=== PATIENT | male | born 1940 | race Caucasian/White ===

== ENCOUNTER 2018-05-10 11:44 | Inpatient (IN) | payer MEDICARE, OTHER ==
[2018-05-10] MEDS ORDERED: ALBUTEROL NEBULIZED 2.5 MG/3 ML INHALATION STA (11:48)
[2018-05-10] MEDS ORDERED: methylPREDNISolone SOD SUCCI 125 MG/2 ML VIAL IV STA (11:48)
[2018-05-10] MEDS ORDERED: IPRATROPIUM 0.5 MG/2.5 ML NEBU INHALATION STA (11:48)
[2018-05-10] MEDS ORDERED: SODIUM CHLORIDE 0.9% 1,000 ML IV STA (11:48)
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
[2018-05-10 12:57] LABS: Basophils # (A) 0.1 k/uL (0-0.2); Basophils % (A) 1 %; Eosinophils # (A) 0.2 k/uL (0-0.7); Eosinophils % (A) 2 %; HCT 53.2 % (39.0-53.0); HGB 15.9 gm/dL (13.0-17.5); Hypochromasia Slight; Lymphocytes % (A) 39 %; MCH 26.3 pg (25.0-35.0); MCHC 29.9 g/dL (31.0-37.0); MCV 88.1 fL (80.0-100.0); Mean Platelet Volume 6.9; Monocytes # (A) 0.8 k/uL (0-1.0); Monocytes % (A) 6 %; Neutrophils # (A) 6.6 k/uL (1.3-7.7); Neutrophils % (A) 49 %; Platelet Count 336 k/uL (150-450); RBC 6.05 m/uL (4.30-5.90); RDW 14.4 % (11.5-15.5); WBC 13.4 k/uL (3.8-10.6)
[2018-05-10 13:00] LABS: Lymphocytes # (A) 5.3 k/uL (1.0-4.8)
[2018-05-10 13:07] LABS: Albumin 3.9 g/dL (3.5-5.0); Calcium 8.9 mg/dL (8.4-10.2); Magnesium 2.2 mg/dL (1.6-2.3); Total Bilirubin 0.7 mg/dL (0.2-1.3); Total Protein 7.6 g/dL (6.3-8.2)
[2018-05-10 13:19] LABS: Potassium 4.8 mmol/L (3.5-5.1)
[2018-05-10 13:25] LABS: Creatine Kinase 31 U/L (55-170)
[2018-05-10 13:38] LABS: Creatine Kinase MB 0.4 ng/mL (0.0-2.4); Troponin I <0.012 ng/mL (0.000-0.034)
--- NOTE | 2018-05-10 14:30 | XR ---
EXAMINATION TYPE: XR chest 2V DATE OF EXAM: 05/10/2018 COMPARISON: 07/06/2015 HISTORY: Shortness of breath TECHNIQUE: Frontal and lateral views of the chest are obtained. FINDINGS: Scattered senescent parenchymal changes noted. Hyperinflation compatible with COPD. Patchy density right medial lung base. Consider atelectasis or developing infiltrate. Heart size is stable. Mediastinal structures are stable and grossly unremarkable. No evidence for hilar prominence. Degenerative changes dorsal spine. IMPRESSION: 1. Patchy density right medial lung base. Consider atelectasis or developing infiltrate.
[2018-05-10] MEDS ORDERED: LEVOFLOXACIN 750MG-D5W PMX 750 MG in DEXTROSE/WATER 1 150ML.BAG IVPB STA (14:53)
[2018-05-10] MEDS ORDERED: PIPERACILLIN-TAZOBACTAM 3.375 GM in SODIUM CHLORIDE 0.9% 100 ML IVPB STA (14:53)
[2018-05-10] MEDS: SODIUM CHLORIDE 0.9% 1,000 ML IV SCH (15:56)
[2018-05-10] MEDS: IPRATROPIUM-ALBUTEROL 3 ML NEB INHALATION SCH ×2 (16:00→19:35)
[2018-05-10] MEDS ORDERED: LORazepam 2 MG/ML INJ IV STA (16:04)
[2018-05-10] MEDS: methylPREDNISolone SOD SUCCI 125 MG/2 ML VIAL IV SCH (19:11)
[2018-05-10] MEDS ORDERED: AMMONIUM LACTATE 12% CREAM 140 GM TUBE TOPICAL PRN (22:58)
[2018-05-10] MEDS ORDERED: ALBUTEROL NEBULIZED 2.5 MG/3 ML INHALATION PRN (22:58)
[2018-05-11] MEDS ORDERED: Acetaminophen-Codeine 300-30mg TAB PO STA (00:11)
[2018-05-11] MEDS ORDERED: ACETAMINOPHEN TAB 500 MG TAB PO PRN (00:12)
[2018-05-11] MEDS: PIPERACILLIN-TAZOBACTAM 3.375 GM in SODIUM CHLORIDE 0.9% 100 ML IVPB SCH ×3 (00:24→17:02)
[2018-05-11] MEDS: methylPREDNISolone SOD SUCCI 125 MG/2 ML VIAL IV SCH ×4 (00:24→17:55)
[2018-05-11] MEDS: SODIUM CHLORIDE 0.9% 1,000 ML IV SCH ×3 (00:29→22:09)
[2018-05-11] MEDS: IPRATROPIUM-ALBUTEROL 3 ML NEB INHALATION SCH ×4 (07:11→20:39)
[2018-05-11] MEDS: BUDESONIDE 0.5 MG/2 ML NEBU INHALATION SCH ×2 (07:11→20:39)
[2018-05-11] MEDS: ENOXAPARIN 40 MG/0.4 ML SYRINGE SQ SCH ×2 (08:06→08:12)
[2018-05-11] MEDS: DOCUSATE 100 MG CAP PO SCH ×2 (08:06→12:00)
[2018-05-11] MEDS: ASPIRIN 325 MG TAB PO SCH (08:06)
[2018-05-11] MEDS ORDERED: LEVOFLOXACIN 750MG-D5W PMX 750 MG in DEXTROSE/WATER 1 150ML.BAG IVPB SCH (16:00)
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
[2018-05-12] MEDS: PIPERACILLIN-TAZOBACTAM 3.375 GM in SODIUM CHLORIDE 0.9% 100 ML IVPB SCH ×3 (01:33→17:05)
[2018-05-12] MEDS: methylPREDNISolone SOD SUCCI 125 MG/2 ML VIAL IV SCH ×3 (01:33→11:25)
[2018-05-12] MEDS: LORazepam 2 MG/ML INJ IV PRN ×3 (05:17→21:50)
[2018-05-12] MEDS: BUDESONIDE 0.5 MG/2 ML NEBU INHALATION SCH ×2 (08:11→20:06)
[2018-05-12] MEDS: IPRATROPIUM-ALBUTEROL 3 ML NEB INHALATION SCH ×4 (08:11→20:06)
[2018-05-12] MEDS: SODIUM CHLORIDE 0.9% 1,000 ML IV SCH ×2 (08:16→17:32)
[2018-05-12] MEDS: LEVOFLOXACIN 750 MG TAB PO SCH (08:17)
[2018-05-12] MEDS: ASPIRIN 325 MG TAB PO SCH (08:17)
[2018-05-12] MEDS: DOCUSATE 100 MG CAP PO SCH ×2 (08:34→14:39)
[2018-05-12] MEDS: ENOXAPARIN 40 MG/0.4 ML SYRINGE SQ SCH (08:34)
--- NOTE | 2018-05-12 13:43 | P.PN ---
Subjective Progress Note Date: 05/12/18 77-year-old male one of Dr. Olvera's patient with past medical history of COPD, dementia, diabetes, hypertension hyperlipidemia who had history of bilateral DVT in the past had significant advanced dementia who presented to the emergency department at [facility] on 05/10/2018 complaining of worsening shortness of breath for the last 2 weeks become much worse the last few days with recurrent congestion and cough productive duct phlegm has been having hypoxia apparently 911 was called and EMS To the scene and transported patient to the emergency department where was seen and evaluated surprisingly chest x-ray showed right medial lung base infiltrate with worsening cough mild hypoxia and low pulse oximetry. Patient was started on IV antibiotics and admitted to the hospital shortly after with above problem. Patient is taking bronchodilator along with the distal night which will be continue both for now. 05/12: Patient is oriented to person only, he is incontinent of urine. He is able to eat 100% of his lunch. He has been afebrile, heart rate running in the 90s to low 100s. Pulse ox 94% on 3 L nasal cannula. No respiratory distress is noted. Solu-Medrol will be decreased to 40 mg every 8 hours. Blood culture is coag-negative staph which appears to be a contamination. Repeat blood culture will be checked. Patient is currently on Levaquin and Zosyn. Blood pressure is 140/96 and patient will be started on amlodipine. Review of Systems CONSTITUTIONAL: Well-developed no respiratory distress EYES: No icterus sclerae, no conjunctivitis. EARS, NOSE, MOUTH, THROAT, and FACE: No sore throat, lymphadenopathy, carotid bruits or deformity. RESPIRATORY: positive shortness of br and productive phlegm. CARDIOVASCULAR: positive PND orthopnea p GASTROINTESTINAL: No Abd pain, Nausea or vomiting, no Diarrhea or constipation, No GI Bleed, no distention or masses. GENITOURINARY: Negative for Hematuria or UTI, no kidney stones. INTEGUMENT/BREAST: Negative for any muscular injury with mild osteoarthritis.. HEMATOLOGIC/LYMPHATIC: Negative for bleed or purpura. MUSCULOSKELTAL: Negative for Myalgia or arthralgia. NEURLOGICAL: No LOC, Sz or syncope, blurred vision dizziness or abnormality.. BEHAVIORAL/PSYCH: Negative. ENDOCRINE: Negative. Objective - Vital Signs Vital signs: Vital Signs Temp 97.3 F L 01/30/19 06:01 Pulse 93 05/12/18 06:01 Resp 18 05/12/18 08:00 BP 185/92 05/12/18 06:01 Pulse Ox 94 L 05/12/18 06:01 Intake & Output 05/11/18 05/12/18 05/12/18 18:59 06:59 18:59 Intake Total 1200 Output Total 200 Balance 1200 -200 Intake: Oral 1200 Output: Urine 200 Other: Voiding Method Urinal Urinal Urinal Incontinent Incontinent # Voids 1 3 # Bowel Movements 1 - Exam General Appearance: Alert, cooperative, no respiratory distress. Neck HEENT: Supple, no lymphadenopathy, no thyroid enlargement, no carotid bruits. Lungs: decreased breaths in bilatemostly in the rigezes as well. Chest Wall:decreased expansion with deep inspiration no tenderness and no deformity was found on exam, no costochondral pain or discomfort. Heart: Regular rate and rhythm, S1, S2 normal, no murmur, rub or gallop. Back: Symmetric, no curvature, ROM normal, no CVA tenderness. Abdomen: Soft, non-tender, bowel sounds active all four quadrants, no masses, no organomegaly. Extremities: Extremities normal, atraumatic, no cyanosis or edema. Pulses: 2+ and symmetric. Skin: Skin color, texture, tugor normal, no rashes or lesions. Neurologic: Oriented to person only - Labs CBC & Chem 7: 05/10/18 12:15 05/10/18 12:15 Labs: Microbiology - Last 24 Hours (Table) 05/10/18 15:50 Blood Culture Gram Stain - Preliminary Blood Blood Culture - Preliminary Coagulase Negative Staph 05/10/18 15:50 Blood Culture - Final Blood Assessment and Plan Plan: 1 Acute respiratory distress secondary to aspiration pneumonia: Patient will be admitted to the hospital continue O2 continue Solu-Medrol will continue patient on albuterol ipratropium and Pulmicort for now consult pulmonary. 2 Right lower lobe pneumonia: Most likely aspiration pneumonia patient was started on Zosyn and Levaquin continued. 3 COPD with exacerbation at this point: Patient will be on updraft Solu-Medrol and Pulmicort. 4 Type 2 diabetes: Patient is not in any medication continue Accu-Chek with sliding scales for steroids. 5 History of DVT: Has not been on any anticoagulation long-term, patient will be on Lovenox while he is not hospital. He is up and about and ambulating. 6 Hypertension: Not on any medication if blood pressures elevated we will add amlodipine 5 mg daily. 7 Hyperlipidemia: Again he is not on any statin at this point. We will start atorvastatin 40 mg at bedtime. 8 Severe worsening dementia mostly Alzheimer disease patient is not in any medication or management for it yet. 9 GI prophylaxis: Patient will be on Pepcid 20 mg daily. 10 DVT prophylaxis: Patient will be on Lovenox. CODE STATUS: DO NOT RESUSCITATE. Discharge plan: Return to [facility] in the next 24-48 hours. Impression and plan of care have been directed as dictated by the signing physician. Maribel Stock nurse practitioner acting as scribe for signing physician.
[2018-05-12] MEDS: amLODIPine 5 MG TAB PO SCH (14:39)
[2018-05-12] MEDS: methylPREDNISolone SOD SUCCI 40 MG/ML 1 ML VIAL IV SCH (17:08)
[2018-05-12 17:14] LABS: Glucose,Whole Blood 198 mg/dL (75-99)
[2018-05-12] MEDS: INSULIN ASPART 100 UNIT/ML 1 ML 10 ML VIAL SQ SCH ×3 (17:31→21:45)
[2018-05-12 20:17] LABS: Glucose,Whole Blood 168 mg/dL (75-99)
[2018-05-12] MEDS: ATORVASTATIN 40 MG TAB PO SCH ×2 (21:38→21:45)
[2018-05-13] MEDS: methylPREDNISolone SOD SUCCI 40 MG/ML 1 ML VIAL IV SCH ×4 (00:05→23:03)
[2018-05-13] MEDS: PIPERACILLIN-TAZOBACTAM 3.375 GM in SODIUM CHLORIDE 0.9% 100 ML IVPB SCH ×4 (00:06→23:03)
[2018-05-13 04:16] LABS: Hemoglobin A1C 6.9 % (4.0-6.0)
[2018-05-13] MEDS: SODIUM CHLORIDE 0.9% 1,000 ML IV SCH ×2 (05:11→13:39)
[2018-05-13 07:09] LABS: Glucose,Whole Blood 162 mg/dL (75-99)
[2018-05-13] MEDS: BUDESONIDE 0.5 MG/2 ML NEBU INHALATION SCH ×2 (07:41→19:38)
[2018-05-13] MEDS: IPRATROPIUM-ALBUTEROL 3 ML NEB INHALATION SCH ×4 (07:41→19:38)
[2018-05-13] MEDS: FAMOTIDINE 20 MG TAB PO SCH (08:37)
[2018-05-13] MEDS: ENOXAPARIN 40 MG/0.4 ML SYRINGE SQ SCH (08:37)
[2018-05-13] MEDS: LEVOFLOXACIN 750 MG TAB PO SCH (08:37)
[2018-05-13] MEDS: amLODIPine 5 MG TAB PO SCH (08:37)
[2018-05-13] MEDS: ASPIRIN 325 MG TAB PO SCH (08:37)
[2018-05-13] MEDS: DOCUSATE 100 MG CAP PO SCH ×2 (08:37→13:47)
[2018-05-13] MEDS: INSULIN ASPART 100 UNIT/ML 1 ML 10 ML VIAL SQ SCH ×4 (08:38→20:28)
[2018-05-13 09:47] LABS: Basophils % (A) 0 %; Eosinophils # (A) 0.1 k/uL (0-0.7); Eosinophils % (A) 0 %; HCT 51.6 % (39.0-53.0); HGB 15.1 gm/dL (13.0-17.5); Hypochromasia Marked; Lymphocytes # (A) 1.8 k/uL (1.0-4.8); Lymphocytes % (A) 12 %; MCH 26.8 pg (25.0-35.0); MCHC 29.2 g/dL (31.0-37.0); MCV 91.6 fL (80.0-100.0); Mean Platelet Volume 7.4; Monocytes # (A) 0.8 k/uL (0-1.0); Monocytes % (A) 5 %; Neutrophils # (A) 12.6 k/uL (1.3-7.7); Neutrophils % (A) 82 %; Platelet Count 312 k/uL (150-450); RBC 5.63 m/uL (4.30-5.90); RDW 14.8 % (11.5-15.5); WBC 15.4 k/uL (3.8-10.6)
[2018-05-13 10:08] LABS: Albumin 3.4 g/dL (3.5-5.0); Calcium 8.7 mg/dL (8.4-10.2); Potassium 4.8 mmol/L (3.5-5.1); Total Bilirubin 0.4 mg/dL (0.2-1.3); Total Protein 6.5 g/dL (6.3-8.2)
[2018-05-13 11:08] LABS: Poikilocytosis (M) Present
[2018-05-13 11:50] LABS: Glucose,Whole Blood 172 mg/dL (75-99)
--- NOTE | 2018-05-13 12:58 | P.PN ---
Subjective Progress Note Date: 05/13/18 77-year-old male one of Dr. Olvera's patient with past medical history of COPD, dementia, diabetes, hypertension hyperlipidemia who had history of bilateral DVT in the past had significant advanced dementia who presented to the emergency department at [facility] on 05/10/2018 complaining of worsening shortness of breath for the last 2 weeks become much worse the last few days with recurrent congestion and cough productive duct phlegm has been having hypoxia apparently 911 was called and EMS To the scene and transported patient to the emergency department where was seen and evaluated surprisingly chest x-ray showed right medial lung base infiltrate with worsening cough mild hypoxia and low pulse oximetry. Patient was started on IV antibiotics and admitted to the hospital shortly after with above problem. Patient is taking bronchodilator along with the distal night which will be continue both for now. 05/12: Patient is oriented to person only, he is incontinent of urine. He is able to eat 100% of his lunch. He has been afebrile, heart rate running in the 90s to low 100s. Pulse ox 94% on 3 L nasal cannula. No respiratory distress is noted. Solu-Medrol will be decreased to 40 mg every 8 hours. Blood culture is coag-negative staph which appears to be a contamination. Repeat blood culture will be checked. Patient is currently on Levaquin and Zosyn. Blood pressure is 140/96 and patient will be started on amlodipine. 05/13: Patient awakens easily to verbal stimuli. He is awake and alert to person and can answer questions on himself appropriately. We will add in consult with Dr. VICKY Linares as he has seen him in the past. He'll be continued on Solu-Medrol 40 every 8 hours along with Zosyn, Levaquin, DuoNeb treatments and Pulmicort. Patient has been afebrile, blood pressure 157/69, pulse ox 94-96 % on 2 L nasal cannula. Heart rate ran between 80s and 90s. White count is 15.4, creatinine 1.23, With blood glucose running between 162 and 224. Patient is on NovoLog scale. IV fluids will be discontinued. Anticipate possible discharge to [facility] on Thursday or Thursday. Review of Systems CONSTITUTIONAL: Well-developed no respiratory distress EYES: No icterus sclerae, no conjunctivitis. EARS, NOSE, MOUTH, THROAT, and FACE: No sore throat, lymphadenopathy, carotid bruits or deformity. RESPIRATORY: positive shortness of br and productive phlegm. CARDIOVASCULAR: Denies PND orthopnea p GASTROINTESTINAL: No Abd pain, Nausea or vomiting, no Diarrhea or constipation, No GI Bleed, no distention or masses. GENITOURINARY: Negative for Hematuria or UTI, no kidney stones. INTEGUMENT/BREAST: Negative for any muscular injury with mild osteoarthritis.. HEMATOLOGIC/LYMPHATIC: Negative for bleed or purpura. MUSCULOSKELTAL: Negative for Myalgia or arthralgia. NEURLOGICAL: No LOC, Sz or syncope, blurred vision dizziness or abnormality. BEHAVIORAL/PSYCH: Negative. ENDOCRINE: Negative. Objective - Vital Signs Vital signs: Vital Signs Temp 97.0 F L 05/13/18 06:30 Pulse 88 05/13/18 11:19 Resp 18 05/13/18 06:30 BP 157/69 05/13/18 06:30 Pulse Ox 94 L 05/13/18 06:30 Intake & Output 05/12/18 05/13/18 05/13/18 18:59 06:59 18:59 Intake Total 1200 900 Balance 1200 900 Intake: Oral 1200 900 Other: Voiding Method Urinal Urinal Incontinent Incontinent # Voids 1 2 - Exam General Appearance: Alert, cooperative, no respiratory distress. Patient awakens easily to verbal stimuli. Neck HEENT: Supple, no lymphadenopathy, no thyroid enlargement, no carotid bruits. Lungs: decreased breaths in bilatemostly in the rigezes as well. Chest Wall:decreased expansion with deep inspiration no tenderness and no deformity was found on exam, no costochondral pain or discomfort. Heart: Regular rate and rhythm, S1, S2 normal, no murmur, rub or gallop. Back: Symmetric, no curvature, ROM normal, no CVA tenderness. Abdomen: Soft, non-tender, bowel sounds active all four quadrants, no masses, no organomegaly. Extremities: Extremities normal, atraumatic, no cyanosis or edema. Pulses: 2+ and symmetric. Skin: Skin color, texture, tugor normal, no rashes or lesions. Neurologic: Oriented to person only - Labs CBC & Chem 7: 05/13/18 09:18 05/13/18 09:18 Labs: Abnormal Lab Results - Last 24 Hours (Table) 05/12/18 05/12/18 05/12/18 Range/Units 12:15 17:10 20:15 WBC (3.8-10.6) k/uL MCHC (31.0-37.0) g/dL Neutrophils # (1.3-7.7) k/uL Chloride (98-107) mmol/L BUN (9-20) mg/dL Glucose (74-99) mg/dL POC Glucose (mg/dL) 198 H 168 H (75-99) mg/dL Hemoglobin A1c 6.9 H (4.0-6.0) % Albumin (3.5-5.0) g/dL 05/13/18 05/13/18 05/13/18 Range/Units 06:54 09:18 09:18 WBC 15.4 H (3.8-10.6) k/uL MCHC 29.2 L (31.0-37.0) g/dL Neutrophils # 12.6 H (1.3-7.7) k/uL Chloride 112 H (98-107) mmol/L BUN 28 H (9-20) mg/dL Glucose 224 H (74-99) mg/dL POC Glucose (mg/dL) 162 H (75-99) mg/dL Hemoglobin A1c (4.0-6.0) % Albumin 3.4 L (3.5-5.0) g/dL Assessment and Plan Plan: 1 Acute respiratory distress secondary to aspiration pneumonia: Patient will be admitted to the hospital continue O2 continue Solu-Medrol will continue patient on albuterol ipratropium and Pulmicort for now consult pulmonary. Consult added for Dr. VICKY Linares. 2 Right lower lobe pneumonia: Most likely aspiration pneumonia patient was started on Zosyn and Levaquin continued. 3 COPD with exacerbation at this point: Patient will be on updraft Solu-Medrol and Pulmicort. 4 Type 2 diabetes: Patient is not in any medication continue Accu-Chek with sliding scales for steroids. 5 History of DVT: Has not been on any anticoagulation long-term, patient will be on Lovenox while he is not hospital. He is up and about and ambulating. 6 Hypertension: Not on any medication if blood pressures elevated we will add amlodipine 5 mg daily. 7 Hyperlipidemia: Again he is not on any statin at this point. We will start atorvastatin 40 mg at bedtime. 8 Severe worsening dementia mostly Alzheimer disease patient is not in any medication or management for it yet. 9 GI prophylaxis: Patient will be on Pepcid 20 mg daily. 10 DVT prophylaxis: Patient will be on Lovenox. CODE STATUS: DO NOT RESUSCITATE. Discharge plan: Return to [facility] in the next 24-48 hours. Impression and plan of care have been directed as dictated by the signing physician. Maribel Stock nurse practitioner acting as scribe for signing physician.
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
[2018-05-13] MEDS: LORazepam 2 MG/ML INJ IV PRN ×2 (14:51→21:27)
--- NOTE | 2018-05-13 16:51 | CT ---
EXAMINATION TYPE: CT chest wo con DATE OF EXAM: 05/13/2018 COMPARISON: None HISTORY: Shortness of breath and cough. CT DLP: 686.5 mGycm. Automated Exposure Control for Dose Reduction was Utilized. TECHNIQUE: CT scan of the thorax is performed without IV contrast. FINDINGS: There is dense airspace consolidation in the right upper lobe involving all the segments. There is sl ight anterior deviation of the major fissure that suggests atelectasis also. There are calcified gran ulomata at the pulmonary hiram. There is aneurysm of the ascending aorta measures 4.9 cm. Heart is sli ghtly enlarged. There is no pericardial effusion. There is no pleural effusion. There is some scarrin g in minimal atelectasis at the left posterior lung base. There are surgical clips in the left upper quadrant. There is 2 cm exophytic cyst on the posterior left kidney. I see no mediastinal adenopathy. There is spurring in the thoracic spine. There is no compression fracture. IMPRESSION: Right upper lobe pneumonia and minimal atelectasis. Old granulomatous disease. Thoracic aortic aneurysm. Minimal scarring and subsegmental atelectasis at the left lung base.
[2018-05-13 17:25] LABS: Glucose,Whole Blood 269 mg/dL (75-99)
[2018-05-13] MEDS: ATORVASTATIN 40 MG TAB PO SCH (20:18)
[2018-05-13 21:07] LABS: Glucose,Whole Blood 271 mg/dL (75-99)
[2018-05-14 07:07] LABS: Glucose,Whole Blood 130 mg/dL (75-99)
[2018-05-14] MEDS: IPRATROPIUM-ALBUTEROL 3 ML NEB INHALATION SCH ×2 (07:21→10:49)
[2018-05-14] MEDS: BUDESONIDE 0.5 MG/2 ML NEBU INHALATION SCH (07:22)
[2018-05-14] MEDS: INSULIN ASPART 100 UNIT/ML 1 ML 10 ML VIAL SQ SCH ×2 (07:51→13:11)
[2018-05-14] MEDS: methylPREDNISolone SOD SUCCI 40 MG/ML 1 ML VIAL IV SCH (07:55)
[2018-05-14] MEDS: PIPERACILLIN-TAZOBACTAM 3.375 GM in SODIUM CHLORIDE 0.9% 100 ML IVPB SCH ×2 (07:55→15:38)
[2018-05-14] MEDS: ENOXAPARIN 40 MG/0.4 ML SYRINGE SQ SCH (10:39)
[2018-05-14] MEDS: amLODIPine 5 MG TAB PO SCH (10:41)
[2018-05-14] MEDS: FAMOTIDINE 20 MG TAB PO SCH (10:42)
[2018-05-14] MEDS: DOCUSATE 100 MG CAP PO SCH ×2 (10:42→14:17)
[2018-05-14] MEDS: ASPIRIN 325 MG TAB PO SCH (10:43)
[2018-05-14] MEDS: LEVOFLOXACIN 750 MG TAB PO SCH (10:44)
[2018-05-14 11:00] VITALS: PULSE 100
--- NOTE | 2018-05-14 11:44 | FL ---
EXAMINATION TYPE: FL barium swallow w video DATE OF EXAM: 05/14/2018 MODIFIED SWALLOW / DEGLUTITION STUDY CLINICAL HISTORY: History of COPD with recurrent pneumonia, rule out aspiration. TECHNIQUE: Deglutition study is performed utilizing thin liquid barium, honey and nectar thick liqui d barium, barium thick applesauce, and barium coated cracker. A total of 2 minutes 9 seconds of fluor oscopic time was utilized during procedure. Serial spot images are saved to PACS. COMPARISON: None. FINDINGS: Exam slightly suboptimal due to patient's body habitus. The oral and pharyngeal phases show satisfactory initiation and propagation with all modalities tested. Satisfactory mastication is seen with solid modalities tested. There is no evidence of penetration or aspiration with any modality t ested. Mild pharyngeal residue was appreciated. IMPRESSION: No penetration or aspiration observed. Please refer to speech therapist notes for furthe r details if necessary.
[2018-05-14 12:21] LABS: Glucose,Whole Blood 176 mg/dL (75-99)
--- NOTE | 2018-05-14 12:42 | PN ---
PROGRESS NOTE DATE OF SERVICE: 05/14/2018 He continues to have shortness of breath. He does not have any chest pain. PHYSICAL EXAMINATION: Respiratory rate is 24, pulse rate 93, temperature 97.6, blood pressure 145/70, O2 saturation is 90%. HEENT is unremarkable. Chest is expiratory wheeze. Cardiovascular system is S1, S2. Abdomen is soft. There is no pedal edema. IMPRESSION: 1. Aspiration type pneumonia. 2. Bronchospasm. Video fluoroscopic study did not show any evidence of penetration or aspiration. 3. At this point in time, would continue the patient on current medications including Zosyn, IV steroids and bronchodilators. Prognosis is fair. MMODL / IJN: [id number] /
--- NOTE | 2018-05-14 13:06 | P.DS ---
Providers Date of admission: 05/12/18 10:32 Expected date of discharge: 05/14/18 Attending physician: Juliana Olvera Consults: 05/13/18 10:43 Consult Physician Routine Consulting Provider: Arvind Linares Consult Reason/Comments: pneumonia Do you want consulting provider notified?: Yes Primary care physician: Juliana Olvera [facility] Course: 77-year-old male one of Dr. Olvera's patient with past medical history of COPD, dementia, diabetes, hypertension hyperlipidemia who had history of bilateral DVT in the past had significant advanced dementia who presented to the emergency department at [facility] on 05/10/2018 complaining of worsening shortness of breath for the last 2 weeks become much worse the last few days with recurrent congestion and cough productive duct phlegm has been having hypoxia apparently 911 was called and EMS To the scene and transported patient to the emergency department where was seen and evaluated surprisingly chest x-ray showed right medial lung base infiltrate with worsening cough mild hypoxia and low pulse oximetry. Patient was started on IV antibiotics and admitted to the hospital shortly after with above problem. Patient is taking bronchodilator along with the distal night which will be continue both for now. 05/12: Patient is oriented to person only, he is incontinent of urine. He is able to eat 100% of his lunch. He has been afebrile, heart rate running in the 90s to low 100s. Pulse ox 94% on 3 L nasal cannula. No respiratory distress is noted. Solu-Medrol will be decreased to 40 mg every 8 hours. Blood culture is coag-negative staph which appears to be a contamination. Repeat blood culture will be checked. Patient is currently on Levaquin and Zosyn. Blood pressure is 140/96 and patient will be started on amlodipine. 05/13: Patient awakens easily to verbal stimuli. He is awake and alert to person and can answer questions on himself appropriately. We will add in consult with Dr. VICKY Linares as he has seen him in the past. He'll be continued on Solu-Medrol 40 every 8 hours along with Zosyn, Levaquin, DuoNeb treatments and Pulmicort. Patient has been afebrile, blood pressure 157/69, pulse ox 94-96 % on 2 L nasal cannula. Heart rate ran between 80s and 90s. White count is 15.4, creatinine 1.23, With blood glucose running between 162 and 224. Patient is on NovoLog scale. IV fluids will be discontinued. Anticipate possible discharge to [facility] on Thursday or Thursday. 05/14: Patient's mental status is much improved today. Appears patient is back to his baseline. He underwent modified barium swallow which did not find any aspiration. Patient has been afebrile, heart rate running in the 90s to 100. Blood pressure 145/70. Pulse ox 92% on 2 L nasal cannula. CAT scan of the chest reveals right upper lobe pneumonia and minimal atelectasis. Old granulomatous disease. Thoracic aortic aneurysm measures 4.9 cm. Minimal scarring and subsegmental atelectasis at the left lung base. Patient has been seen by pulmonary medicine. She is breathing status is improved and we will plan for return to [facility] today in stable condition. Discharge diagnoses: 1 Acute respiratory distress secondary to aspiration pneumonia, right lower lobe pneumonia 2 metabolic encephalopathy secondary to pneumonia 3 COPD with exacerbation 4 Type 2 diabetes uncontrolled with hyperglycemia secondary to steroids 5 History of DVT 6 Hypertension 7 Hyperlipidemia 8 Severe worsening dementia mostly Alzheimer disease Discharge plan: Return to [facility] under the care of Dr. Olvera Impression and plan of care have been directed as dictated by the signing physician. Maribel Stock nurse practitioner acting as scribe for signing physician. Patient Condition at Discharge: Good Plan - Discharge Summary Discharge Rx Participant: No New Discharge Prescriptions: New amLODIPine [Norvasc] 5 mg PO DAILY tab Atorvastatin [Lipitor] 40 mg PO HS tab Insulin Aspart [NovoLOG (formulary)] 0 unit SQ ACHS vial Levofloxacin [Levaquin] 750 mg PO DAILY #5 tab predniSONE 0 mg PO DIRECTED #40 tab Continue Albuterol Nebulized [Ventolin Nebulized] 2.5 mg INHALATION RT-Q4H PRN PRN Reason: Shortness Of Breath Or Wheezing Aspirin 325 mg PO DAILY@0900 Inzo 1 applic TOPICAL Q12H Ammonium Lactate Cream [Lac-Hydrin 12% Cream] 1 applic TOPICAL BID PRN PRN Reason: Dry Skin Docusate [Colace] 100 mg PO BID@0900,1400 Budesonide [Pulmicort] 0.5 mg INHALATION RT-BID Discharge Medication List Albuterol Nebulized [Ventolin Nebulized] 2.5 mg INHALATION RT-Q4H PRN 04/15/14 [ History] Aspirin 325 mg PO DAILY@0900 07/06/15 [History] Inzo 1 applic TOPICAL Q12H 07/07/15 [History] Ammonium Lactate Cream [Lac-Hydrin 12% Cream] 1 applic TOPICAL BID PRN 05/10/18 [History] Budesonide [Pulmicort] 0.5 mg INHALATION RT-BID 05/10/18 [History] Docusate [Colace] 100 mg PO BID@0900,1400 05/10/18 [History] Atorvastatin [Lipitor] 40 mg PO HS tab 05/14/18 [Rx] Insulin Aspart [NovoLOG (formulary)] 0 unit SQ ACHS vial 05/14/18 [Rx] Levofloxacin [Levaquin] 750 mg PO DAILY #5 tab 05/14/18 [Rx] amLODIPine [Norvasc] 5 mg PO DAILY tab 05/14/18 [Rx] predniSONE 0 mg PO DIRECTED #40 tab 05/14/18 [Rx] Follow up Appointment(s)/Referral(s): Juliana Olvera MD [Primary Care Provider] - 1 Week (at [facility]) Peggy Perry DO [Doctor of Osteopathic Medicine] - 2 Weeks Patient Instructions/Handouts: Pneumonia (DC) Activity/Diet/Wound Care/Special Instructions: Cardiac, diabetic diet. Assist with meals. Activity as tolerated, fall precautions. Transfer to chair, change positions every 2 hours. Toiliting schedule. Avoid brief. Bottom red, apply zinc barrier cream as needed.
[2018-05-14 14:30] VITALS: BP 134/65; RESP 20; TEMP 98.4
== END 2018-05-14 16:54 | DRG 177 ==
LOC: EC 11:44 → 4MS4W 14:03 → EEVIPCON 14:03 → INTOOBSV 14:03 → 4MS4W 17:20 → OBSVTOIN 05-12 10:32
PROVIDERS: ADMIT Family Medicine; ATTEND Family Medicine
DX: J69.0 Pneumonitis due to inhalation of food and vomit (principal); G93.41 Metabolic encephalopathy; J96.01 Acute respiratory failure with hypoxia; J44.1 Chronic obstructive pulmonary disease with (acute) exacerbation; E11.65 Type 2 diabetes mellitus with hyperglycemia; E78.5 Hyperlipidemia, unspecified; F02.80 Dementia in other diseases classified elsewhere, unspecified severity, without behavioral disturbance, psychotic disturbance, mood disturbance, and anxiety; G30.9 Alzheimer's disease, unspecified; H54.7 Unspecified visual loss; I11.0 Hypertensive heart disease with heart failure; I25.10 Atherosclerotic heart disease of native coronary artery without angina pectoris; I50.9 Heart failure, unspecified; I71.2 Thoracic aortic aneurysm, without rupture; R32 Unspecified urinary incontinence; T38.0X5A Adverse effect of glucocorticoids and synthetic analogues, initial encounter; Z66 Do not resuscitate; Z79.82 Long term (current) use of aspirin; Z86.718 Personal history of other venous thrombosis and embolism; Z86.73 Personal history of transient ischemic attack (TIA), and cerebral infarction without residual deficits; Z87.891 Personal history of nicotine dependence; Z88.8 Allergy status to other drugs, medicaments and biological substances
CPT/HCPCS: 36415; 71046; 71250; 74230; 80053; 82550; 82553; 83036; 83735; 83880; 84484; 85025; 87040; 87077; 87186; 87502; 93005; 94640; 94760; 96365; 99285

== ENCOUNTER 2021-05-12 14:03 | Emergency (ER) | payer MEDICARE, OTHER ==
[2021-05-12 14:57] LABS: ALT 22 U/L (4-49); AST 48 U/L (17-59); African American GFR (CKD) >90 (>60 ml/min/1.73 sqM); Albumin 3.8 g/dL (3.5-5.0); Alkaline Phosphatase 64 U/L (38-126); Anion Gap 6 mmol/L; Blood Urea Nitrogen 30 mg/dL (9-20); Calcium 8.7 mg/dL (8.4-10.2); Carbon Dioxide 23 mmol/L (22-30); Chloride 108 mmol/L (98-107); Glucose 129 mg/dL (74-99); Magnesium 2.1 mg/dL (1.6-2.3); Non-African American GFR(CKD) 83 (>60 ml/min/1.73 sqM); Sodium 137 mmol/L (137-145); Total Bilirubin 1.4 mg/dL (0.2-1.3); Total Protein 7.8 g/dL (6.3-8.2)
[2021-05-12 14:58] LABS: Potassium 5.8 mmol/L (3.5-5.1)
[2021-05-12 14:59] LABS: Basophils # (A) 0.1 k/uL (0-0.2); Basophils % (A) 1 %; Eosinophils # (A) 0.2 k/uL (0-0.7); Eosinophils % (A) 2 %; HCT 52.3 % (39.0-53.0); HGB 16.4 gm/dL (13.0-17.5); Lymphocytes # (A) 3.9 k/uL (1.0-4.8); Lymphocytes % (A) 30 %; MCH 28.2 pg (25.0-35.0); MCHC 31.4 g/dL (31.0-37.0); MCV 89.9 fL (80.0-100.0); Mean Platelet Volume 8.4; Monocytes # (A) 0.8 k/uL (0-1.0); Monocytes % (A) 6 %; Neutrophils % (A) 61 %; Platelet Count 182 k/uL (150-450); RBC 5.82 m/uL (4.30-5.90); RDW 14.7 % (11.5-15.5); WBC 13.1 k/uL (3.8-10.6)
[2021-05-12 15:00] LABS: INR 0.9 (<1.2)
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
[2021-05-12 15:04] LABS: Partial Thromboplastin Time 20.3 sec (22.0-30.0)
--- NOTE | 2021-05-12 15:39 | XR ---
EXAMINATION TYPE: XR chest 2V DATE OF EXAM: 05/12/2021 COMPARISON: 05/10/2018 HISTORY: Difficulty breathing TECHNIQUE: 3 views FINDINGS: There is no heart failure nor confluent pneumonic infiltrate. Costophrenic angles are clear . There are chest leads. There are no hilar masses. IMPRESSION: No active cardiopulmonary disease. No change.
[2021-05-12] MEDS ORDERED: IPRATROPIUM-ALBUTEROL 3 ML NEB INHALATION STA (17:28)
--- NOTE | 2021-05-12 18:08 | CT ---
EXAMINATION TYPE: CT chest angio for PE DATE OF EXAM: 05/12/2021 COMPARISON: May 19, 2014 HISTORY: Hypoxic, hx DVT CT DLP: 511.8 mGycm Automated exposure control for dose reduction was used. CONTRAST: Performed with IV Contrast, patient injected with 100 mL of Isovue 370. There are Three-D postprocessed images. There is some right upper lobe pulmonary emphysema. There is some patchy mild linear subpleural inter stitial density in the lower lung nunez. This is consistent with some scarring and subsegmental atel ectasis. Heart size is normal. There is no pericardial effusion. There is no pleural effusion. Thorac ic aorta is atheromatous. There is extensive plaque in the descending thoracic aorta and at the aorti c arch. There is normal contrast opacification of the pulmonary arteries. There are no filling defects. The thoracic spine is intact. Sternum is intact. There is no compression fracture. There is no medias tinal adenopathy. There are no hilar masses. IMPRESSION: No evidence of pulmonary embolism. Extensive irregular plaque in the thoracic aorta. No dissection. T his appears similar to old exam. Mild emphysema. No suspicious pulmonary mass. There is some scarring and subsegmental atelectasis at the lung bases slightly increased compared to old exam. There is gordy aring of some infiltrate in the right paraspinal right lower lobe compared to old exam.
[2021-05-12 19:16] VITALS: BP 111/78; PULSE 86; RESP 18; TEMP 98.2
== END 2021-05-12 19:25 | disposition home or self-care (01) ==
LOC: EC 14:03
DX: J96.01 Acute respiratory failure with hypoxia (principal); J44.9 Chronic obstructive pulmonary disease, unspecified; F03.90 Unspecified dementia, unspecified severity, without behavioral disturbance, psychotic disturbance, mood disturbance, and anxiety; E11.9 Type 2 diabetes mellitus without complications; E78.5 Hyperlipidemia, unspecified; I10 Essential (primary) hypertension; Z20.822 Contact with and (suspected) exposure to COVID-19; Z79.82 Long term (current) use of aspirin; Z86.73 Personal history of transient ischemic attack (TIA), and cerebral infarction without residual deficits
CPT/HCPCS: 99285; 36415; 94640; 93005; 83880; 80053; 83605; 83735; 84484; 85025; 85610; 85730; 87635; 71046; 71275; Q9967

== ENCOUNTER 2022-01-06 12:41 | Inpatient (IN) | payer MEDICARE, OTHER ==
[2022-01-06] MEDS ORDERED: SODIUM CHLORIDE 0.9% 1,000 ML IV STA (12:50)
[2022-01-06] MEDS ORDERED: PANTOPRAZOLE 40 MG/10 ML VIAL IVP STA (12:50)
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
[2022-01-06 13:09] LABS: Basophils # (A) 0.2 k/uL (0-0.2); Basophils % (A) 1 %; Eosinophils # (A) 0.2 k/uL (0-0.7); Eosinophils % (A) 1 %; HGB 13.1 gm/dL (13.0-17.5); Hypochromasia Slight; Lymphocytes # (A) 3.7 k/uL (1.0-4.8); Lymphocytes % (A) 18 %; MCHC 30.5 g/dL (31.0-37.0); MCV 88.5 fL (80.0-100.0); Mean Platelet Volume 7.9; Monocytes # (A) 0.9 k/uL (0-1.0); Monocytes % (A) 4 %; Neutrophils # (A) 14.9 k/uL (1.3-7.7); Neutrophils % (A) 74 %; Platelet Count 302 k/uL (150-450); RBC 4.86 m/uL (4.30-5.90); RDW 14.6 % (11.5-15.5)
[2022-01-06 13:25] LABS: Albumin 3.1 g/dL (3.5-5.0); Calcium 8.5 mg/dL (8.4-10.2); Potassium 4.7 mmol/L (3.5-5.1); Total Bilirubin 0.4 mg/dL (0.2-1.3); Total Protein 5.9 g/dL (6.3-8.2)
[2022-01-06 13:30] LABS: INR 0.9 (<1.2); Partial Thromboplastin Time 25.1 sec (22.0-30.0)
--- NOTE | 2022-01-06 14:20 | CT ---
EXAMINATION TYPE: CT abdomen pelvis w con DATE OF EXAM: 01/06/2022 COMPARISON: CT abdomen and pelvis May 05, 2014 HISTORY: Rectal bleeding CT DLP: 1091 mGycm, Automated Exposure Control for Dose Reduction was Utilized. CONTRAST: CT scan of the abdomen and pelvis is performed without oral and with IV Contrast, patient injected wi th 100 mL of Isovue 300. FINDINGS: LUNG BASES: No significant abnormality is appreciated. LIVER/GB: Dependent small gallstones and/or gallbladder sludge extends into gallbladder neck. No surr ounding fluid or fat stranding to suggest acute cholecystitis. PANCREAS: No significant abnormality is seen. SPLEEN: Irregular lobulated spleen redemonstrated.. ADRENALS: No significant abnormality is seen. KIDNEYS: Cortical thinning in both kidneys. There are 3 simple appearing thin-walled cysts scattered throughout the left kidney measuring up to 2.9 cm in size delayed axial image 31. Symmetric cortical medullary uptake without visualized excretion on current study. No hydronephrosis noted bilaterally. Bladder poorly distended and thus suboptimally evaluated. BOWEL: There is incidental 3.6 cm duodenal diverticulum near junction of second and third portion cor onal image 44 redemonstrated. Normal-appearing appendix from the cecum. No suspicious small or large bowel dilatation. Diverticula throughout the colon are identified without convincing CT evidence for acute diverticulitis. Moderate rectal fecal prominence noted mild to moderate wall thickening proxima l left colon near iliac crest normal limits 50 is nonspecific. PROSTATE/SEMINAL VESICLES: No gross abnormality seen. LYMPH NODES: No greater than 1cm abdominal or pelvic lymph nodes are appreciated. OSSEOUS STRUCTURES: Surgical change to left proximal femur is partially imaged. Multilevel spurring i n the thoracolumbar spine. Moderate axial joint space loss in both hips. OTHER: Severe mixed plaque of the aorta extends into branch vessels. IMPRESSION: Possible mild to moderate uncomplicated colitis proximal sigmoid colon level of the left pelvis versus product of poor distention, correlate clinically. Diffuse colonic diverticulosis is pre sent. No bowel obstruction seen. Moderate rectal colonic fecal stasis noted.
[2022-01-06] MEDS ORDERED: NALOXONE 0.4 MG/ML 1 ML VIAL IV PRN (14:31)
[2022-01-06] MEDS ORDERED: AMPICILLIN-SULBACTAM 1.5 GM in SODIUM CHLORIDE 0.9% 50 ML IVPB ONE (14:45)
[2022-01-06] MEDS ORDERED: ALBUTEROL NEBULIZED 2.5 MG/3 ML INHALATION PRN (15:15)
[2022-01-06] MEDS ORDERED: AMMONIUM LACTATE 12% CREAM 140 GM TUBE TOPICAL PRN (15:15)
[2022-01-06] MEDS: SODIUM CHLORIDE 0.9% 1,000 ML IV SCH (15:25)
[2022-01-06] MEDS: VITS A & D-WHITE PET-LANOLIN 5 GM OINT.PACK TOPICAL SCH (17:04)
[2022-01-06] MEDS ORDERED: ONDANSETRON 4 MG/2 ML VIAL IVP PRN (19:03)
[2022-01-06] MEDS ORDERED: NON FORMULARY DRUG (Lactose-Reduced Food [Ensure Plus] 237 ML Ml) PO SCH (20:00)
[2022-01-07] MEDS ORDERED: SENNOSIDES 8.6 MG TAB PO PRN (00:31)
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
[2022-01-07] MEDS: AMPICILLIN-SULBACTAM 1.5 GM in SODIUM CHLORIDE 0.9% 50 ML IVPB SCH ×3 (01:18→06:54)
[2022-01-07] MEDS: MELATONIN 3 MG TABLET PO SCH ×2 (01:19→21:25)
[2022-01-07] MEDS: VITS A & D-WHITE PET-LANOLIN 5 GM OINT.PACK TOPICAL SCH ×3 (01:19→23:34)
[2022-01-07] MEDS: DOCUSATE ORAL SOLN 100 MG/10 ML CUP PO SCH ×3 (01:26→23:34)
[2022-01-07] MEDS: SODIUM CHLORIDE 0.9% 1,000 ML IV SCH ×2 (06:55→18:09)
[2022-01-07] MEDS: SYMBICORT 160-4.5 MCG INHALER INHALATION SCH ×2 (08:04→20:00)
[2022-01-07] MEDS: PANTOPRAZOLE 40 MG/10 ML VIAL IV SCH (08:21)
[2022-01-07] MEDS: DULoxetine HCL 60 MG CAPSULE.DR PO SCH (08:21)
[2022-01-07 09:02] LABS: Basophils # (A) 0.1 k/uL (0-0.2); Basophils % (A) 0 %; Eosinophils # (A) 0.1 k/uL (0-0.7); Eosinophils % (A) 1 %; HCT 39.3 % (39.0-53.0); HGB 11.7 gm/dL (13.0-17.5); Hypochromasia Marked; Lymphocytes # (A) 4.1 k/uL (1.0-4.8); Lymphocytes % (A) 20 %; MCHC 29.7 g/dL (31.0-37.0); MCV 90.7 fL (80.0-100.0); Mean Platelet Volume 7.7; Monocytes % (A) 5 %; Neutrophils # (A) 15.3 k/uL (1.3-7.7); Neutrophils % (A) 73 %; Platelet Count 271 k/uL (150-450); RBC 4.33 m/uL (4.30-5.90); RDW 14.7 % (11.5-15.5); WBC 20.9 k/uL (3.8-10.6)
[2022-01-07 09:21] LABS: African American GFR (CKD) 80 (>60 ml/min/1.73 sqM); Anion Gap 7 mmol/L; Blood Urea Nitrogen 33 mg/dL (9-20); Calcium 7.9 mg/dL (8.4-10.2); Carbon Dioxide 24 mmol/L (22-30); Chloride 106 mmol/L (98-107); Glucose 112 mg/dL (74-99); Non-African American GFR(CKD) 69 (>60 ml/min/1.73 sqM); Potassium 4.5 mmol/L (3.5-5.1); Sodium 137 mmol/L (137-145)
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
[2022-01-07 11:41] LABS: Glucose,Whole Blood 152 mg/dL (70-110)
[2022-01-07] MEDS ORDERED: AMPICILLIN-SULBACTAM 3 GM in SODIUM CHLORIDE 0.9% 50 ML IVPB SCH (12:00)
[2022-01-07] MEDS ORDERED: VANCOMYCIN IV PER PHARMACY 1 EACH MISC MISCELLANE PRN (12:50)
[2022-01-07] MEDS: AMPICILLIN-SULBACTAM 3 GM in SODIUM CHLORIDE 0.9% 100 ML IVPB SCH ×3 (12:56→23:33)
[2022-01-07] MEDS ORDERED: VANCOMYCIN 1,500 MG in SODIUM CHLORIDE 0.9% 250 ML IVPB SCH (13:00)
[2022-01-07 16:50] LABS: Glucose,Whole Blood 123 mg/dL (70-110)
[2022-01-07 19:41] LABS: Glucose,Whole Blood 98 mg/dL (70-110)
[2022-01-08 05:55] LABS: Glucose,Whole Blood 99 mg/dL (70-110)
[2022-01-08 06:10] LABS: Basophils # (A) 0.1 k/uL (0-0.2); Basophils % (A) 1 %; Eosinophils # (A) 0.3 k/uL (0-0.7); Eosinophils % (A) 1 %; HCT 28.8 % (39.0-53.0); Hypochromasia Slight; Lymphocytes # (A) 4.2 k/uL (1.0-4.8); Lymphocytes % (A) 18 %; MCH 27.5 pg (25.0-35.0); MCV 88.7 fL (80.0-100.0); Mean Platelet Volume 8.6; Monocytes # (A) 1.3 k/uL (0-1.0); Monocytes % (A) 6 %; Neutrophils # (A) 17.4 k/uL (1.3-7.7); Neutrophils % (A) 74 %; Platelet Count 242 k/uL (150-450); RBC 3.24 m/uL (4.30-5.90); RDW 14.8 % (11.5-15.5); WBC 23.7 k/uL (3.8-10.6)
[2022-01-08 06:11] LABS: Calcium 7.2 mg/dL (8.4-10.2); Potassium 4.1 mmol/L (3.5-5.1)
[2022-01-08 06:23] LABS: HGB 8.9 gm/dL (13.0-17.5)
[2022-01-08] MEDS: AMPICILLIN-SULBACTAM 3 GM in SODIUM CHLORIDE 0.9% 100 ML IVPB SCH (06:30)
[2022-01-08] MEDS: SYMBICORT 160-4.5 MCG INHALER INHALATION SCH ×2 (07:49→20:30)
[2022-01-08] MEDS: PANTOPRAZOLE 40 MG/10 ML VIAL IV SCH (08:35)
[2022-01-08] MEDS: DULoxetine HCL 60 MG CAPSULE.DR PO SCH (08:35)
[2022-01-08] MEDS: SODIUM CHLORIDE 0.9% 1,000 ML IV SCH ×2 (08:51→21:37)
[2022-01-08 11:50] LABS: Glucose,Whole Blood 109 mg/dL (70-110)
[2022-01-08] MEDS: PIPERACILLIN-TAZOBACTAM 3.375 GM in SODIUM CHLORIDE 0.9% 100 ML IVPB SCH ×2 (12:20→21:36)
--- NOTE | 2022-01-08 15:20 | XR ---
EXAMINATION TYPE: XR chest 1V DATE OF EXAM: 01/08/2022 COMPARISON: 05/12/2021 INDICATION: Fever TECHNIQUE: Single frontal view of the chest is obtained. FINDINGS: The heart size is normal. The pulmonary vasculature is normal. The lungs are clear. IMPRESSION: 1. No acute pulmonary process.
--- NOTE | 2022-01-08 16:20 | P.PN ---
Subjective Progress Note Date: 01/08/22 Principal diagnosis: Rectal bleeding This is a 81-year-old male with a past medical history CVA, dementia, type 2 diabetes hypertension and hyperlipidemia who presented to the emergency department complaints of rectal bleeding. Patient has dementia and is a poor historian. When asked he states that he thinks that it has resolved. He denies any abdominal pain, nausea or vomiting. He had a CT of the abdomen and pelvis on admission that reported possible mild to moderate uncomplicated colitis. When speaking to his nurse there was no further reported of rectal bleeding or bowel movements throughout the night. He was noted to have white count of 20 on admission and was started on Unasyn. He's been afebrile. Patient's admitting hemoglobin was 13.1 repeat today 11.7 01/08/2022: Patient is seen and examined today as a follow-up. Patient remains pleasantly confused. He denies any acute changes. Unsure if he's having any bloody bowel movements. Denies any abdominal pain, nausea or vomiting. He has been tolerating a clear liquid diet. Objective - Vital Signs Vital signs: Vital Signs Temp 98.1 F 01/08/22 07:54 Pulse 79 01/08/22 07:54 Resp 18 01/08/22 07:54 BP 104/61 01/08/22 07:54 Pulse Ox 95 01/08/22 07:54 FiO2 Intake & Output 01/07/22 01/08/22 01/08/22 18:59 06:59 18:59 Intake Total 340 Balance 340 Weight 80.5 kg Intake: Oral 340 Other: Voiding Method Diaper Diaper # Voids 1 1 # Bowel Movements 1 - Exam General appearance: The patient is alert, oriented to self, appears in no acute distress. HET: Head is normocephalic and atraumatic. Conjunctiva pink. Sclera anicteric. Neck: Supple without lymphadenopathy. Abdomen: Soft, nontender, nondistended with bowel sounds. No guarding or rigidity. Extremities: Normal skin color and turgor. No pedal edema Skin: No rashes, no jaundice Neurological: No focal deficits. Alert, oriented to self.. - Labs CBC & Chem 7: 01/08/22 05:09 01/08/22 05:09 Labs: Abnormal Lab Results - Last 24 Hours (Table) 09/01/07/22 01/08/22 Range/Units 11:35 16:49 05:09 WBC 23.7 H (3.8-10.6) k/uL RBC 3.24 L (4.30-5.90) m/uL Hgb 8.9 L D (13.0-17.5) gm/dL Hct 28.8 L (39.0-53.0) % Neutrophils # 17.4 H (1.3-7.7) k/uL Monocytes # 1.3 H (0-1.0) k/uL Sodium (137-145) mmol/L BUN (9-20) mg/dL POC Glucose (mg/dL) 152 H 123 H (70-110) mg/dL Calcium (8.4-10.2) mg/dL 01/08/22 Range/Units 05:09 WBC (3.8-10.6) k/uL RBC (4.30-5.90) m/uL Hgb (13.0-17.5) gm/dL Hct (39.0-53.0) % Neutrophils # (1.3-7.7) k/uL Monocytes # (0-1.0) k/uL Sodium 135 L (137-145) mmol/L BUN 21 H (9-20) mg/dL POC Glucose (mg/dL) (70-110) mg/dL Calcium 7.2 L (8.4-10.2) mg/dL Microbiology - Last 24 Hours (Table) 01/06/22 14:28 Blood Culture Gram Stain - Preliminary Blood Blood Culture - Preliminary Coagulase Negative Staph 01/06/22 14:45 Blood Culture Gram Stain - Preliminary Blood Blood Culture - Preliminary Staphylococcus epidermidis 01/06/22 14:28 Blood Culture - Final Blood 01/06/22 14:45 Blood Culture - Final Blood Assessment and Plan (1) Colitis Narrative/Plan: 81-year-old male with past medical history CVA dementia who is a poor historian and unable to give much information on his symptoms and what brought him into the hospital apparently presented with rectal bleeding. He had a CT of the abdomen and pelvis that showed mild to moderate uncomplicated colitis. He did present with a white blood count of 20, afebrile. Unsure etiology of colitis however likely infectious due to elevated white count. He was started on Unasyn. Unsure of prior colonoscopy. No reports available at this time. Patient has not had any further rectal bleeding or bowel movements throughout the night. We'll continue to monitor. No plans at this time for colonoscopy. We'll try to reach out to patient's guardian to see when the last colonoscopy was. Reached out to the patient's nephew who is his legal guardian, he is unsure of last colonoscopy or if he has had a colonoscopy in the past. States he was told that he was found with his sheets covered in blood. No previous history of GI bleed that he is aware of. Patient continues to have elevated BUN and drop in his hemoglobin, which can be consistent with a upper GI bleed. The patient however has not had any further bowel movements or bloody bowel movements according to nursing. Will continue to monitor, likely planned EGD for Thursday. Current Visit: Yes Status: Acute Code(s): K52.9 - NONINFECTIVE GASTROENTERITIS AND COLITIS, UNSPECIFIED SNOMED Code(s): 47474005 (2) Lower GI hemorrhage Current Visit: Yes Status: Acute Code(s): K92.2 - GASTROINTESTINAL HEMORRHA GE, UNSPECIFIED SNOMED Code(s): 55441389 Plan: 1. Continue symptomatic and supportive care 2. Daily CBC transfuse for hemoglobin less than 7 3. Avoid NSAIDs 4. Stool studies ordered 5. Protonix 40 mg daily GI prophylaxis 6. No plans on colonoscopy at this time, consider EGD on Thursday Thank you for this consultation, we will continue to follow. Dr. Radha Toney I agree with the dictator's note, documented as a scribe by Kaila Clancy.
[2022-01-08 16:31] LABS: Glucose,Whole Blood 128 mg/dL (70-110)
[2022-01-08] MEDS: ASPIRIN 81 MG PO SCH (17:10)
[2022-01-08] MEDS: DOCUSATE ORAL SOLN 100 MG/10 ML CUP PO SCH ×2 (17:11→21:36)
[2022-01-08] MEDS: VITS A & D-WHITE PET-LANOLIN 5 GM OINT.PACK TOPICAL SCH (17:12)
[2022-01-08 20:38] LABS: Glucose,Whole Blood 90 mg/dL (70-110)
[2022-01-08] MEDS: MELATONIN 3 MG TABLET PO SCH (21:36)
[2022-01-09] MEDS: PIPERACILLIN-TAZOBACTAM 3.375 GM in SODIUM CHLORIDE 0.9% 100 ML IVPB SCH ×3 (04:10→21:06)
[2022-01-09] MEDS: VITS A & D-WHITE PET-LANOLIN 5 GM OINT.PACK TOPICAL SCH ×3 (04:11→21:12)
[2022-01-09 06:18] LABS: Glucose,Whole Blood 85 mg/dL (70-110)
[2022-01-09] MEDS: SYMBICORT 160-4.5 MCG INHALER INHALATION SCH ×2 (07:49→20:34)
[2022-01-09] MEDS: ASPIRIN 81 MG PO SCH (09:15)
[2022-01-09] MEDS: DULoxetine HCL 60 MG CAPSULE.DR PO SCH (09:15)
[2022-01-09] MEDS: PANTOPRAZOLE 40 MG/10 ML VIAL IV SCH (09:15)
[2022-01-09] MEDS: DOCUSATE ORAL SOLN 100 MG/10 ML CUP PO SCH ×2 (09:17→21:07)
[2022-01-09] MEDS: SODIUM CHLORIDE 0.9% 1,000 ML IV SCH (09:19)
[2022-01-09 10:20] LABS: HCT 30.2 % (39.0-53.0); HGB 9.4 gm/dL (13.0-17.5); Hypochromasia Marked; MCH 28.1 pg (25.0-35.0); MCV 90.5 fL (80.0-100.0); Mean Platelet Volume 8.3; Platelet Count 251 k/uL (150-450); RBC 3.33 m/uL (4.30-5.90); RDW 14.7 % (11.5-15.5); WBC 16.6 k/uL (3.8-10.6)
[2022-01-09 10:30] LABS: Calcium 7.6 mg/dL (8.4-10.2)
[2022-01-09 11:43] LABS: Glucose,Whole Blood 99 mg/dL (70-110)
--- NOTE | 2022-01-09 13:23 | CDI ---
Documentation Clarification Form Date: 01/09/2022 01:14:45 PM From: Patricia Liriano CCS, CCDS Admit Date: 01/06/2022 02:33:00 PM Patient Name: Gonzalo Magdaleno Visit Number: [id number] Discharge Date: ATTENTION: The Clinical Documentation Specialists (CDI) and [facility] Coding Staff appreciate your assistance in clarifying documentation. Please respond to the clarification below the line at the bottom and electronically sign. The CDI & [facility] Coding staff will review the response and follow-up if needed. Please note: Queries are made part of the Legal Health Record. If you have any questions, please contact the author of this message via ITS. Dr. Amado Hdz: The patient presented with the following clinical indicators. Additional clarification regarding the etiology/cause of the clinical indicators is requested. History/Risk Factors per the 01/06 H/P: Diverticulitis, Diabetic Normal Pressure Hydrocephalus, CVA, Dementia, Hypertension, Hyperlipidemia, Former smoker. Clinical Indicators: Presented to the ED on 01/06 via EMS with rectal bleeding. Has had diarrhea recently. Admit with Lower GI Bleed, Colitis. 01/06 VS: T 98.0, P 111, R 18, BP 86/56, PO 92 RA, BMI: 30.5 01/06 LAB: WBC 20.0, Neutrophils 14.9; CO2 21, BUN 32, Glucose 202, Lactic Acid 1.8, Total Protein 5.9, Albumin 3.1. 01/06 Blood Culture x2: Final. x2: Preliminary: Coagulase Negative Staph, Staphylococcus epidermidis. 01/06 CT Abdomen/Pelvis: Possible mild to moderate uncomplicated colitis proximal sigmoid colon. Diffuse colonic diverticulosis. Moderate rectal colonic fecal stasis. Treatment 01/06: Telemetry, DNR, IV Protonix 40 mg x1, IV Na Chl 1,000 mls @ 100 mls/hr q10H, IV Ampicillin 50 mls @ 100 mls/hr x1, IV Na Chl 1,000 mls @ 75 mls/hr q13H. In your professional opinion, please clarify if these findings signify one of the following conditions: [ x ] Sepsis POA [ ] Sepsis, Not POA [ ] Sepsis ruled out [ ] Other, please specify [ ] Unable to determine (Template Last Reviewed: May 2020) MTDD
--- NOTE | 2022-01-09 16:18 | P.PN ---
Subjective Progress Note Date: 01/09/22 Principal diagnosis: Rectal bleeding This is a 81-year-old male with a past medical history CVA, dementia, type 2 diabetes hypertension and hyperlipidemia who presented to the emergency department complaints of rectal bleeding. Patient has dementia and is a poor historian. When asked he states that he thinks that it has resolved. He denies any abdominal pain, nausea or vomiting. He had a CT of the abdomen and pelvis on admission that reported possible mild to moderate uncomplicated colitis. When speaking to his nurse there was no further reported of rectal bleeding or bowel movements throughout the night. He was noted to have white count of 20 on admission and was started on Unasyn. He's been afebrile. Patient's admitting hemoglobin was 13.1 repeat today 11.7 01/08/2022: Patient is seen and examined today as a follow-up. Patient remains pleasantly confused. He denies any acute changes. Unsure if he's having any bloody bowel movements. Denies any abdominal pain, nausea or vomiting. He has been tolerating a clear liquid diet. 01/09/2022. Patient again seen is a follow-up toda for possible GI bleed. Patient continues to remain pleasantly confused. He states he had a bowel movement unsure if there was blood in it. Nursing states no blood in stool. Hemoglobin is stable at 9.4. BUN improved to 17. Patient is denying any abdominal pain, nausea or vomiting. Objective - Vital Signs Vital signs: Vital Signs Temp 98.3 F 01/09/22 08:00 Pulse 74 01/09/22 08:00 Resp 17 01/09/22 08:00 BP 119/69 01/09/22 08:00 Pulse Ox 95 01/09/22 08:00 FiO2 Intake & Output 01/08/22 01/09/22 01/09/22 18:59 06:59 18:59 Intake Total 0 Output Total 1400 Balance 0 -1400 Intake: Oral 0 Output: Urine 1400 Other: Voiding Method Diaper Diaper Incontinent Incontinent External Catheter External Catheter # Bowel Movements 0 - Exam General appearance: The patient is alert, oriented to self, appears in no acute distress. HET: Head is normocephalic and atraumatic. Conjunctiva pink. Sclera anicteric. Neck: Supple without lymphadenopathy. Abdomen: Soft, nontender, nondistended with bowel sounds. No guarding or rigidity. Extremities: Normal skin color and turgor. No pedal edema Skin: No rashes, no jaundice Neurological: No focal deficits. Alert, oriented to self.. - Labs CBC & Chem 7: 01/09/22 10:00 01/09/22 10:00 Labs: Abnormal Lab Results - Last 24 Hours (Table) 01/08/22 Range/Units 16:29 POC Glucose (mg/dL) 128 H (70-110) mg/dL Microbiology - Last 24 Hours (Table) 01/06/22 14:28 Blood Culture Gram Stain - Preliminary Blood Blood Culture - Preliminary Coagulase Negative Staph 01/06/22 14:45 Blood Culture Gram Stain - Preliminary Blood Blood Culture - Preliminary Staphylococcus epidermidis Assessment and Plan (1) Colitis Narrative/Plan: 81-year-old male with past medical history CVA dementia who is a poor historian and unable to give much information on his symptoms and what brought him into the hospital apparently presented with rectal bleeding. He had a CT of the abdomen and pelvis that showed mild to moderate uncomplicated colitis. He did present with a white blood count of 20, afebrile. Unsure etiology of colitis however likely infectious due to elevated white count. He was started on Unasyn. Unsure of prior colonoscopy. No reports available at this time. Patient has not had any further rectal bleeding or bowel movements throughout the night. We'll continue to monitor. No plans at this time for colonoscopy. We'll try to reach out to patient's guardian to see when the last colonoscopy was. Reached out to the patient's nephew who is his legal guardian, he is unsure of last colonoscopy or if he has had a colonoscopy in the past. States he was told that he was found with his sheets covered in blood. No previous history of GI bleed that he is aware of. Patient continues to have elevated BUN and drop in his hemoglobin, which can be consistent with a upper GI bleed. The patient however has not had any further bowel movements or bloody bowel movements according to nursing. Will continue to monitor, likely planned EGD for Thursday. Current Visit: Yes Status: Acute Code(s): K52.9 - NONINFECTIVE GASTROENTERITIS AND COLITIS, UNSPECIFIED SNOMED Code(s): 99524628 (2) Lower GI hemorrhage Current Visit: Yes Status: Acute Code(s): K92.2 - GASTROINTESTINAL HEMORRHAGE, UNSPECIFIED SNOMED Code(s): 93334341 Plan: 1. Continue symptomatic and supportive care 2. Daily CBC transfuse for hemoglobin less than 7 3. Avoid NSAIDs 4. Stool studies ordered 5. Protonix 40 mg daily GI prophylaxis 6. Advance to regular diet and nothing by mouth after midnight 7. Will repeat CBC, if hemoglobin stable no plans on endoscopic evaluation and patient can be cleared for discharge from gastroenterology. If the drop in hemoglobin will proceed with EGD tomorrow afternoon. Thank you for this consultation, we will continue to follow. Dr. Radha Toney I agree with the dictator's note, documented as a scribe by Kaila Clancy.
[2022-01-09 16:34] LABS: Glucose,Whole Blood 99 mg/dL (70-110)
[2022-01-09 20:07] LABS: Glucose,Whole Blood 92 mg/dL (70-110)
[2022-01-09] MEDS: MELATONIN 3 MG TABLET PO SCH (21:07)
[2022-01-10] MEDS: SODIUM CHLORIDE 0.9% 1,000 ML IV SCH (02:09)
[2022-01-10] MEDS: PIPERACILLIN-TAZOBACTAM 3.375 GM in SODIUM CHLORIDE 0.9% 100 ML IVPB SCH (04:51)
[2022-01-10] MEDS: SYMBICORT 160-4.5 MCG INHALER INHALATION SCH (08:05)
[2022-01-10] MEDS: DULoxetine HCL 60 MG CAPSULE.DR PO SCH (08:30)
[2022-01-10] MEDS: PANTOPRAZOLE 40 MG/10 ML VIAL IV SCH (08:30)
[2022-01-10] MEDS: ASPIRIN 81 MG PO SCH (08:30)
--- NOTE | 2022-01-10 10:30 | P.PN ---
Subjective Progress Note Date: 01/07/22 Patient is a 81-year-old male with a known history of hypertension, hyperlipidemia, diabetes type 2 [id number], history of CVA, dementia and prior history of smoking, idiopathic normal pressure hydrocephalus and other multiple medical problems was sent to ER due to concern for rectal bleeding. Patient is unable to provide any history at this time. Patient does have baseline dementia and is bedridden. Patient has been afebrile. No nausea or vomiting. Was also complaining of abdominal pain on admission. No complaints of chest pain or shortness of breath. CT of the abdomen pelvis showed possible mild to moderate uncomplicated colitis" sigmoid colon level of the left pelvis versus correct of poor distention. Correlate clinically. Diffuse colonic diverticulosis is present. No bowel obstruction is seen. Moderate rectal colonic fecal stasis noted. Laboratory test showed WBC 20.0 hemoglobin 13.1 and platelets 302 INR 0.9 Sodium 137 potassium 4.7 chloride 106 bicarb is 21 BUN 32 and creatinine 1.05 and blood sugar is 202 01/07/2022 Patient is lying in the bed. Awake alert but poor historian. Denied any complaints of abdominal pain. No complaints or diarrhea. Patient is not sure having a bowel movement. Blood cultures grew positive for gram-positive cocci and vancomycin was added. Patient is already on Unasyn. Patient was seen by GI and stool studies were ordered. Continued on PPI. Laboratory data showed WBC went up to 20.9 hemoglobin 11.7 and platelets 271 Sodium 137 potassium 4.5 chloride 106 bicarb is 24 BUN 33 and creatinine 1.03 and pressure is controlled. TSH, folate and B12 levels within normal limits. Current medications reviewed. Objective - Vital Signs Vital signs: Vital Signs Temp 98.0 F 01/07/22 16:36 Pulse 94 01/07/22 16:36 Resp 16 01/07/22 16:36 BP 107/64 01/07/22 16:36 Pulse Ox 95 01/07/22 16:36 FiO2 Intake & Output 01/07/22 01/07/22 01/08/22 06:59 18:59 06:59 Intake Total 340 Balance 340 Weight 93.894 kg Intake: Oral 340 Other: Voiding Method Diaper Diaper # Voids 1 1 - Exam PHYSICAL EXAMINATION: Patient is lying in the bed comfortably, no acute distress, awake alert but not oriented.. HEENT: Normocephalic. Neck is supple. Pupils reactive. Nostrils clear. Oral cavity is moist. Neck reveals no JVD, carotid bruits, or thyromegaly. CHEST EXAMINATION: Trachea is central. Symmetrical expansion. Lung nunez clear to auscultation and percussion. Bibasilar diminished sounds. CARDIAC: Normal S1, S2 with no gallops. No murmurs ABDOMEN: Soft. Bowel sounds present. Nontender. No organomegaly. No abdominal bruits. Extremities: reveal no edema. No clubbing or cyanosis Neurologically awake, alert, oriented 1-2. Underlying dementia.. Able to move extremities while in bed. Skin: No rash or skin lesions. Psychiatric: Coperative. Could not be assessed completely, Musculoskeletal: No joint swelling or deformity. - Labs CBC & Chem 7: 01/09/22 10:00 01/09/22 10:00 Labs: Abnormal Lab Results - Last 24 Hours (Table) 01/07/22 01/07/22 01/07/22 Range/Units 08:29 08:29 11:35 WBC 20.9 H (3.8-10.6) k/uL Hgb 11.7 L (13.0-17.5) gm/dL MCHC 29.7 L (31.0-37.0) g/dL Neutrophils # 15.3 H (1.3-7.7) k/uL BUN 33 H (9-20) mg/dL Glucose 112 H (74-99) mg/dL POC Glucose (mg/dL) 152 H (70-110) mg/dL Calcium 7.9 L (8.4-10.2) mg/dL 01/07/22 Range/Units 16:49 WBC (3.8-10.6) k/uL Hgb (13.0-17.5) gm/dL MCHC (31.0-37.0) g/dL Neutrophils # (1.3-7.7) k/uL BUN (9-20) mg/dL Glucose (74-99) mg/dL POC Glucose (mg/dL) 123 H (70-110) mg/dL Calcium (8.4-10.2) mg/dL Microbiology - Last 24 Hours (Table) 01/06/22 14:45 Blood Culture Gram Stain - Preliminary Blood Blood Culture - Preliminary Staphylococcus epidermidis 01/06/22 14:28 Blood Culture Gram Stain - Preliminary Blood 01/06/22 14:28 Blood Culture - Final Blood 01/06/22 14:45 Blood Culture - Final Blood Assessment and Plan Assessment: Rectal bleeding likely due to diverticulosis versus colitis. No further rectal bleeding. Leukocytosis Colonic stool burden Dehydration volume depletion History of CVA History of diverticulitis Diabetic normal pressure hydrocephalus Dementia Hypertension patient is currently hypotensive Hyperlipidemia Prior history of smoking DVT prophylaxis with SCDs Plan: Patient will be continued on IV hydration and antibiotics in the form of Unasyn. Changes to Zosyn. Monitor H&H. GI is on board. No plan for colonoscopy at this time.. blood pressure medications on hold. Continue with albuterol inhalation as needed. Vancomycin was added due to gram-positive cocci in blood cultures. Turned out to be staph epidermidis. Likely contaminant.. Continue supportive care and replace electrolytes. Monitor CBC daily. Prognosis is guarded. Follow-up closely. Time with Patient: Greater than 30
--- NOTE | 2022-01-10 10:32 | P.PN ---
Subjective Progress Note Date: 01/08/22 Patient is a 81-year-old male with a known history of hypertension, hyperlipidemia, diabetes type 2 [id number], history of CVA, dementia and prior history of smoking, idiopathic normal pressure hydrocephalus and other multiple medical problems was sent to ER due to concern for rectal bleeding. Patient is unable to provide any history at this time. Patient does have baseline dementia and is bedridden. Patient has been afebrile. No nausea or vomiting. Was also complaining of abdominal pain on admission. No complaints of chest pain or shortness of breath. CT of the abdomen pelvis showed possible mild to moderate uncomplicated colitis" sigmoid colon level of the left pelvis versus correct of poor distention. Correlate clinically. Diffuse colonic diverticulosis is present. No bowel obstruction is seen. Moderate rectal colonic fecal stasis noted. Laboratory test showed WBC 20.0 hemoglobin 13.1 and platelets 302 INR 0.9 Sodium 137 potassium 4.7 chloride 106 bicarb is 21 BUN 32 and creatinine 1.05 and blood sugar is 202 01/07/2022 Patient is lying in the bed. Awake alert but poor historian. Denied any complaints of abdominal pain. No complaints or diarrhea. Patient is not sure having a bowel movement. Blood cultures grew positive for gram-positive cocci and vancomycin was added. Patient is already on Unasyn. Patient was seen by GI and stool studies were ordered. Continued on PPI. Laboratory data showed WBC went up to 20.9 hemoglobin 11.7 and platelets 271 Sodium 137 potassium 4.5 chloride 106 bicarb is 24 BUN 33 and creatinine 1.03 and pressure is controlled. TSH, folate and B12 levels within normal limits. 01/09/2092 Patient is lying in bed. Remains confused. Continued on antibiotics in the form of Unasyn, changed to Zosyn due to worsening leukocytosis. Blood cultures are noted to be around positive cocci staph epidermidis and vancomycin has been discontinued. Patient is being continued on gentle IV hydration and continue with tolerating clear liquid diet. Next and patient otherwise poor historian. Denied any complaints of chest pain or worsening shortness of breath. Patient is being continued on Protonix 40 mg daily and supportive care. Current medications reviewed. Objective - Vital Signs Vital signs: Vital Signs Temp 98.7 F 01/08/22 20:00 Pulse 81 01/08/22 20:00 Resp 18 01/08/22 20:00 BP 107/56 01/08/22 20:00 Pulse Ox 95 01/08/22 20:00 FiO2 Intake & Output 01/08/22 01/08/22 01/09/22 06:59 18:59 06:59 Intake Total 0 Output Total 650 Balance 0 -650 Weight 80.5 kg Intake: Oral 0 Output: Urine 650 Other: Voiding Method Diaper Diaper Incontinent External Catheter # Voids 1 # Bowel Movements 1 0 - Exam PHYSICAL EXAMINATION: Patient is lying in the bed comfortably, no acute distress, awake alert but not oriented.. HEENT: Normocephalic. Neck is supple. Pupils reactive. Nostrils clear. Oral cavity is moist. Neck reveals no JVD, carotid bruits, or thyromegaly. CHEST EXAMINATION: Trachea is central. Symmetrical expansion. Lung nunez clear to auscultation and percussion. Bibasilar diminished sounds. CARDIAC: Normal S1, S2 with no gallops. No murmurs ABDOMEN: Soft. Bowel sounds present. Nontender. No organomegaly. No abdominal bruits. Extremities: reveal no edema. No clubbing or cyanosis Neurologically awake, alert, oriented 1-2. Underlying dementia.. Able to move extremities while in bed. Skin: No rash or skin lesions. Psychiatric: Coperative. Could not be assessed completely, Musculoskeletal: No joint swelling or deformity. - Labs CBC & Chem 7: 01/09/22 10:00 01/09/22 10:00 Labs: Abnormal Lab Results - Last 24 Hours (Table) 01/08/22 01/08/22 01/08/22 Range/Units 05:09 05:09 16:29 WBC 23.7 H (3.8-10.6) k/uL RBC 3.24 L (4.30-5.90) m/uL Hgb 8.9 L D (13.0-17.5) gm/dL Hct 28.8 L (39.0-53.0) % Neutrophils # 17.4 H (1.3-7.7) k/uL Monocytes # 1.3 H (0-1.0) k/uL Sodium 135 L (137-145) mmol/L BUN 21 H (9-20) mg/dL POC Glucose (mg/dL) 128 H (70-110) mg/dL Calcium 7.2 L (8.4-10.2) mg/dL Microbiology - Last 24 Hours (Table) 01/06/22 14:28 Blood Culture Gram Stain - Preliminary Blood Blood Culture - Preliminary Coagulase Negative Staph 01/06/22 14:45 Blood Culture Gram Stain - Preliminary Blood Blood Culture - Preliminary Staphylococcus epidermidis Assessment and Plan Assessment: Rectal bleeding likely due to diverticulosis versus colitis. No further rectal bleeding. Leukocytosis Colonic stool burden Dehydration volume depletion History of CVA History of diverticulitis Diabetic normal pressure hydrocephalus Dementia Hypertension patient is currently hypotensive Hyperlipidemia Prior history of smoking DVT prophylaxis with SCDs Plan: Patient will be continued on IV hydration and antibiotics in the form of Unasyn. Changes to Zosyn. Monitor H&H. GI is on board. No plan for colonoscopy at this time.. blood pressure medications on hold. Continue with albuterol inhalation as needed. Vancomycin was added due to gram-positive cocci in blood cultures. Turned out to be staph epidermidis. Likely contaminant.. Continue supportive care and replace electrolytes. Monitor CBC daily. Prognosis is guarded. Follow-up closely. Time with Patient: Greater than 30
--- NOTE | 2022-01-10 10:35 | P.PN ---
Subjective Progress Note Date: 01/09/22 Patient is a 81-year-old male with a known history of hypertension, hyperlipidemia, diabetes type 2 [id number], history of CVA, dementia and prior history of smoking, idiopathic normal pressure hydrocephalus and other multiple medical problems was sent to ER due to concern for rectal bleeding. Patient is unable to provide any history at this time. Patient does have baseline dementia and is bedridden. Patient has been afebrile. No nausea or vomiting. Was also complaining of abdominal pain on admission. No complaints of chest pain or shortness of breath. CT of the abdomen pelvis showed possible mild to moderate uncomplicated colitis" sigmoid colon level of the left pelvis versus correct of poor distention. Correlate clinically. Diffuse colonic diverticulosis is present. No bowel obstruction is seen. Moderate rectal colonic fecal stasis noted. Laboratory test showed WBC 20.0 hemoglobin 13.1 and platelets 302 INR 0.9 Sodium 137 potassium 4.7 chloride 106 bicarb is 21 BUN 32 and creatinine 1.05 and blood sugar is 202 01/07/2022 Patient is lying in the bed. Awake alert but poor historian. Denied any complaints of abdominal pain. No complaints or diarrhea. Patient is not sure having a bowel movement. Blood cultures grew positive for gram-positive cocci and vancomycin was added. Patient is already on Unasyn. Patient was seen by GI and stool studies were ordered. Continued on PPI. Laboratory data showed WBC went up to 20.9 hemoglobin 11.7 and platelets 271 Sodium 137 potassium 4.5 chloride 106 bicarb is 24 BUN 33 and creatinine 1.03 and pressure is controlled. TSH, folate and B12 levels within normal limits. 01/09/2092 Patient is lying in bed. Remains confused. Continued on antibiotics in the form of Unasyn, changed to Zosyn due to worsening leukocytosis. Blood cultures are noted to be around positive cocci staph epidermidis and vancomycin has been discontinued. Patient is being continued on gentle IV hydration and continue with tolerating clear liquid diet. Next and patient otherwise poor historian. Denied any complaints of chest pain or worsening shortness of breath. Patient is being continued on Protonix 40 mg daily and supportive care. 01/09/2022 Patient is resting in the bed. Able to sit in the chair this morning. No complaints of chest pain or shortness of breath. Seems to be more awake and oriented. Patient states that he had blood in the stool today. Not seen by the nursing staff. Hemoglobin is stable. No complaints of abdominal pain. No diarrhea. Laboratory data showed WBC 16.6 hemoglobin 9.4 and platelets 251 Sodium 138 potassium 4.0 chloride 196 bicarb is 24 BUN 17 and creatinine 1.01.. GI is planning for EGD if there is drop in hemoglobin. Current medications reviewed. Objective - Vital Signs Vital signs: Vital Signs Temp 97.9 F 01/09/22 11:59 Pulse 73 01/09/22 11:59 Resp 15 01/09/22 11:59 BP 115/59 01/09/22 11:59 Pulse Ox 96 01/09/22 11:59 FiO2 Intake & Output 01/09/22 01/09/22 01/10/22 06:59 18:59 06:59 Intake Total 236 Output Total 1400 650 Balance -1400 -414 Intake: Oral 236 Output: Urine 1400 650 Other: Voiding Method Diaper External Catheter Incontinent External Catheter - Exam PHYSICAL EXAMINATION: Patient is lying in the bed comfortably, no acute distress, awake alert but not oriented.. HEENT: Normocephalic. Neck is supple. Pupils reactive. Nostrils clear. Oral cavity is moist. Neck reveals no JVD, carotid bruits, or thyromegaly. CHEST EXAMINATION: Trachea is central. Symmetrical expansion. Lung nunez clear to auscultation and percussion. Bibasilar diminished sounds. CARDIAC: Normal S1, S2 with no gallops. No murmurs ABDOMEN: Soft. Bowel sounds present. Nontender. No organomegaly. No abdominal bruits. Extremities: reveal no edema. No clubbing or cyanosis Neurologically awake, alert, oriented 1-2. Underlying dementia.. Able to move extremities while in bed. Skin: No rash or skin lesions. Psychiatric: Coperative. Could not be assessed completely, Musculoskeletal: No joint swelling or deformity. - Labs CBC & Chem 7: 01/09/22 10:00 01/09/22 10:00 Labs: Abnormal Lab Results - Last 24 Hours (Table) 01/09/22 01/09/22 Range/Units 10:00 10:00 WBC 16.6 H (3.8-10.6) k/uL RBC 3.33 L (4.30-5.90) m/uL Hgb 9.4 L (13.0-17.5) gm/dL Hct 30.2 L (39.0-53.0) % Calcium 7.6 L (8.4-10.2) mg/dL Microbiology - Last 24 Hours (Table) 01/06/22 14:45 Blood Culture Gram Stain - Final Blood Blood Culture - Final Staphylococcus epidermidis Staph hominis sub sp. hominis 01/06/22 14:28 Blood Culture Gram Stain - Final Blood Blood Culture - Final Staph hominis sub sp. hominis Assessment and Plan Assessment: Rectal bleeding likely due to diverticulosis versus colitis. No further rectal bleeding. Leukocytosis Colonic stool burden Dehydration volume depletion History of CVA History of diverticulitis Diabetic normal pressure hydrocephalus Dementia Hypertension patient is currently hypotensive Hyperlipidemia Prior history of smoking DVT prophylaxis with SCDs Plan: Patient will be continued on IV hydration and antibiotics in the form of Unasyn. Changes to Zosyn. Leukocytosis is improving. Monitor H&H. GI is on board. No plan for colonoscopy at this time.. blood pressure medications on hold. Continue with albuterol inhalation as needed. Vancomycin was added due to gram-positive cocci in blood cultures. Turned out to be staph epidermidis. Likely contaminant.. Continue supportive care and replace electrolytes. Monitor CBC daily. Hemoglobin is stable. Plan for EGD if hemoglobin drops as per GI. Prognosis is guarded. Follow-up closely. Time with Patient: Greater than 30
--- NOTE | 2022-01-10 10:37 | P.PN ---
Subjective Progress Note Date: 01/10/22 Principal diagnosis: Rectal bleeding This is a 81-year-old male with a past medical history CVA, dementia, type 2 diabetes hypertension and hyperlipidemia who presented to the emergency department complaints of rectal bleeding. Patient has dementia and is a poor historian. When asked he states that he thinks that it has resolved. He denies any abdominal pain, nausea or vomiting. He had a CT of the abdomen and pelvis on admission that reported possible mild to moderate uncomplicated colitis. When speaking to his nurse there was no further reported of rectal bleeding or bowel movements throughout the night. He was noted to have white count of 20 on admission and was started on Unasyn. He's been afebrile. Patient's admitting hemoglobin was 13.1 repeat today 11.7 01/08/2022: Patient is seen and examined today as a follow-up. Patient remains pleasantly confused. He denies any acute changes. Unsure if he's having any bloody bowel movements. Denies any abdominal pain, nausea or vomiting. He has been tolerating a clear liquid diet. 01/09/2022. Patient again seen is a follow-up toda for possible GI bleed. Patient continues to remain pleasantly confused. He states he had a bowel movement unsure if there was blood in it. Nursing states no blood in stool. Hemoglobin is stable at 9.4. BUN improved to 17. Patient is denying any abdominal pain, nausea or vomiting. 01/10/2022. Patient seen and examined as a follow-up. He is lying in bed. Denies any abdominal pain, nausea or vomiting. He is tolerating a regular diet. He had labs ordered for a repeat CBC this morning however he is refusing blood draws. Nursing reports he had a normal soft brown bowel movement, no blood noted. Plan is for discharge today. Objective - Vital Signs Vital signs: Vital Signs Temp 98.5 F 01/10/22 08:00 Pulse 71 01/10/22 08:00 Resp 18 01/10/22 08:00 BP 131/62 01/10/22 08:00 Pulse Ox 94 L 01/10/22 08:43 FiO2 Intake & Output 01/09/22 01/10/22 01/10/22 18:59 06:59 18:59 Intake Total 236 120 Output Total 650 350 Balance -414 -230 Intake: Oral 236 120 Output: Urine 650 350 Other: Voiding Method External Catheter External Catheter - Exam General appearance: The patient is alert, oriented to self, appears in no acute distress. HET: Head is normocephalic and atraumatic. Conjunctiva pink. Sclera anicteric. Neck: Supple without lymphadenopathy. Abdomen: Soft, nontender, nondistended with bowel sounds. No guarding or rigidity. Extremities: Normal skin color and turgor. No pedal edema Skin: No rashes, no jaundice Neurological: No focal deficits. Alert, oriented to self.. - Labs CBC & Chem 7: 01/09/22 10:00 01/09/22 10:00 Labs: Abnormal Lab Results - Last 24 Hours (Table) 01/09/22 01/09/22 Range/Units 10:00 10:00 WBC 16.6 H (3.8-10.6) k/uL RBC 3.33 L (4.30-5.90) m/uL Hgb 9.4 L (13.0-17.5) gm/dL Hct 30.2 L (39.0-53.0) % Calcium 7.6 L (8.4-10.2) mg/dL Microbiology - Last 24 Hours (Table) 01/06/22 14:45 Blood Culture Gram Stain - Final Blood Blood Culture - Final Staphylococcus epidermidis Staph hominis sub sp. hominis 01/06/22 14:28 Blood Culture Gram Stain - Final Blood Blood Culture - Final Staph hominis sub sp. hominis Assessment and Plan (1) Colitis Narrative/Plan: 81-year-old male with past medical history CVA dementia who is a poor historian and unable to give much information on his symptoms and what brought him into the hospital apparently presented with rectal bleeding. He had a CT of the abdomen and pelvis that showed mild to moderate uncomplicated colitis. He did present with a white blood count of 20, afebrile. Unsure etiology of colitis however likely infectious due to elevated white count. He was started on Unasyn . Unsure of prior colonoscopy. No reports available at this time. Patient has not had any further rectal bleeding or bowel movements throughout the night. We'll continue to monitor. No plans at this time for colonoscopy. We'll try to reach out to patient's guardian to see when the last colonoscopy was. Reached out to the patient's nephew who is his legal guardian, he is unsure of last colonoscopy or if he has had a colonoscopy in the past. States he was told that he was found with his sheets covered in blood. No previous history of GI bleed that he is aware of. Patient continues to have elevated BUN and drop in his hemoglobin, which can be consistent with a upper GI bleed. The patient however has not had any further bowel movements or bloody bowel movements according to nursing. Will continue to monitor, likely planned EGD for Thursday. Current Visit: Yes Status: Acute Code(s): K52.9 - NONINFECTIVE GASTROENTERITIS AND COLITIS, UNSPECIFIED SNOMED Code(s): 42259554 (2) Lower GI hemorrhage Current Visit: Yes Status: Acute Code(s): K92.2 - GASTROINTESTINAL HEMORRHAGE, UNSPECIFIED SNOMED Code(s): 02230816 Plan: 1. Continue symptomatic and supportive care 2. Avoid NSAIDs 3. Protonix 40 mg daily GI prophylaxis 4. Patient may have regular diet Patient is refusing all blood draws. He has not had any further melena. Patient is having normal soft brown stools. Hemoglobin has been stable, BUN has improved. No plans on endoscopic evaluation. Patient is cleared for discharge from gastroenterology and can follow-up as needed. Thank you for this consultation, we will sign off at this time. Dr. Radha Toney I agree with the dictator's note, documented as a scribe by Kaila Clancy.
[2022-01-10] MEDS: DOCUSATE ORAL SOLN 100 MG/10 ML CUP PO SCH (11:25)
[2022-01-10] MEDS: VITS A & D-WHITE PET-LANOLIN 5 GM OINT.PACK TOPICAL SCH (11:25)
[2022-01-10 11:47] LABS: Glucose,Whole Blood 98 mg/dL (70-110)
[2022-01-10 12:09] VITALS: BP 122/68; PULSE 72; RESP 17; TEMP 98
--- NOTE | 2022-01-10 13:09 | P.DS ---
Providers Date of admission: 01/06/22 14:33 Expected date of discharge: 01/10/22 Attending physician: Amado Hdz Consults: 01/06/22 14:31 Consult Physician Routine Consulting Provider: Sandy Toney Consult Reason/Comments: colitis, lower gi hemorrhage Do you want consulting provider notified?: Yes Primary care physician: Juliana Olvera Hospital Course: Discharge diagnosis Rectal bleeding likely due to diverticulosis versus colitis. No further rectal bleeding. Improving clinically. Leukocytosis trending down. Colonic stool burden. Patient is having bowel movements last 2 days.. Dehydration volume depletion History of CVA History of diverticulitis Diabetic normal pressure hydrocephalus Dementia Hypertension patient is currently hypotensive Hyperlipidemia Prior history of smoking DVT prophylaxis with SCDs Hospital course Patient is a 81-year-old male with a known history of hypertension, hyperlipidemia, diabetes type 2 [id number], history of CVA, dementia and prior history of smoking, idiopathic normal pressure hydrocephalus and other multiple medical problems was sent to ER due to concern for rectal bleeding. Patient is unable to provide any history at this time. Patient does have baseline dementia and is bedridden. Patient has been afebrile. No nausea or vomiting. Was also complaining of abdominal pain on admission. No complaints of chest pain or shortness of breath. CT of the abdomen pelvis showed possible mild to moderate uncomplicated colitis" sigmoid colon level of the left pelvis versus correct of poor distention. Correlate clinically. Diffuse colonic diverticulosis is present. No bowel obstruction is seen. Moderate rectal colonic fecal stasis noted. Laboratory test showed WBC 20.0 hemoglobin 13.1 and platelets 302 INR 0.9 Sodium 137 potassium 4.7 chloride 106 bicarb is 21 BUN 32 and creatinine 1.05 and blood sugar is 202 01/07/2022 Patient is lying in the bed. Awake alert but poor historian. Denied any com plaints of abdominal pain. No complaints or diarrhea. Patient is not sure having a bowel movement. Blood cultures grew positive for gram-positive cocci and vancomycin was added. Patient is already on Unasyn. Patient was seen by GI and stool studies were ordered. Continued on PPI. Laboratory data showed WBC went up to 20.9 hemoglobin 11.7 and platelets 271 Sodium 137 potassium 4.5 chloride 106 bicarb is 24 BUN 33 and creatinine 1.03 and pressure is controlled. TSH, folate and B12 levels within normal limits. 01/09/2092 Patient is lying in bed. Remains confused. Continued on antibiotics in the form of Unasyn, changed to Zosyn due to worsening leukocytosis. Blood cultures are noted to be around positive cocci staph epidermidis and vancomycin has been discontinued. Patient is being continued on gentle IV hydration and continue with tolerating clear liquid diet. Next and patient otherwise poor historian. Denied any complaints of chest pain or worsening shortness of breath. Patient is being continued on Protonix 40 mg daily and supportive care. 01/09/2022 Patient is resting in the bed. Able to sit in the chair this morning. No complaints of chest pain or shortness of breath. Seems to be more awake and oriented. Patient states that he had blood in the stool today. Not seen by the nursing staff. Hemoglobin is stable. No complaints of abdominal pain. No diarrhea. Laboratory data showed WBC 16.6 hemoglobin 9.4 and platelets 251 Sodium 138 potassium 4.0 chloride 196 bicarb is 24 BUN 17 and creatinine 1.01.. GI is planning for EGD if there is drop in hemoglobin. 01/11/2032 Patient is currently lying in bed. Awake alert and mentation is at baseline. No complaints of chest pain or shortness of breath. No nausea vomiting or abdominal pain. No diarrhea. No blood in the stools noted. Patient is refusing to lab draws. Tolerating oral diet regular rate. Patient be converted on antibiotic course for a total of 7 days and is being discharged to F today. PHYSICAL EXAMINATION: Patient is lying in the bed comfortably, no acute distress, awake alert.. HEENT: Normocephalic. Neck is supple. Pupils reactive. Nostrils clear. Oral cavity is moist. Neck reveals no JVD, carotid bruits, or thyromegaly. CHEST EXAMINATION: Trachea is central. Symmetrical expansion. Lung nunez clear to auscultation and percussion. Bibasilar diminished sounds. CARDIAC: Normal S1, S2 with no gallops. No murmurs ABDOMEN: Soft. Bowel sounds present. Nontender. No organomegaly. No abdominal bruits. Extremities: reveal no edema. No clubbing or cyanosis Neurologically awake, alert, oriented 1-2. Underlying dementia.. Able to move extremities while in bed. Skin: No rash or skin lesions. Psychiatric: Coperative. Could not be assessed completely, Musculoskeletal: No joint swelling or deformity. Vital Signs 01/10/22 01/10/22 01/10/22 08:00 08:43 12:00 Temperature 98.5 F 98 F Pulse Rate [ 71 72 Pulse Oximetery ] Respiratory 18 17 Rate Blood Pressure 131/62 122/68 [Left Arm] O2 Sat by Pulse 100 94 L 95 Oximetry Total time taken greater than 35 minutes including 18 minutes for counseling and coordination of care. Plan - Discharge Summary Discharge Rx Participant: No New Discharge Prescriptions: New cefUROXime axetiL [Ceftin] 500 mg PO BID 3 Days #6 tab metroNIDAZOLE [Flagyl] 500 mg PO BID 3 Days #9 tab Continue Ammonium Lactate Cream [Lac-Hydrin 12% Cream] 1 applic TOPICAL BID PRN PRN Reason: Dry Skin on both legs Docusate [Colace] 200 mg PO DAILY Aspirin 81 mg PO DAILY DULoxetine HCL [Cymbalta] 60 mg PO DAILY Ergocalciferol [Vitamin D2 (1250 Mcg = 24909 Iu)] 1,250 mcg PO Q28D Fluticasone/Vilanterol [Breo Ellipta 200-25 Mcg Inhaler] 1 puff INHALATION RT-DAILY Vits A and D/White Pet/Lanolin [A and D Ointment] 1 applic TOPICAL Q12H Acetaminophen Tab [Tylenol] 650 mg PO Q4H PRN PRN Reason: Pain Albuterol Sulfate [Ventolin HFA] 2 puff INHALATION RT-Q4H PRN PRN Reason: Wheezing amLODIPine BESYLATE/BENAZEPRIL [Lotrel 5-10 MG] 1 cap PO DAILY Lactose-Reduced Food [Ensure Plus] 120 ml PO TID@1000,1400,2000 Melatonin 6 mg PO HS Discontinued cloNIDine 0.1 MG/24HR PATCH [Catapres-TTS] 1 patch TRANSDERM MO@0900 Discharge Medication List Ammonium Lactate Cream [Lac-Hydrin 12% Cream] 1 applic TOPICAL BID PRN 05/10/18 [History] Docusate [Colace] 200 mg PO DAILY 05/10/18 [History] Acetaminophen Tab [Tylenol] 650 mg PO Q4H PRN 05/12/21 [History] Albuterol Sulfate [Ventolin HFA] 2 puff INHALATION RT-Q4H PRN 05/12/21 [History] Aspirin 81 mg PO DAILY 05/12/21 [History] DULoxetine HCL [Cymbalta] 60 mg PO DAILY 05/12/21 [History] Ergocalciferol [Vitamin D2 (1250 Mcg = 41521 Iu)] 1,250 mcg PO Q28D 05/12/21 [History] Fluticasone/Vilanterol [Breo Ellipta 200-25 Mcg Inhaler] 1 puff INHALATION RT- DAILY 05/12/21 [History] Lactose-Reduced Food [Ensure Plus] 120 ml PO TID@1000,1400,2000 05/12/21 [History] Melatonin 6 mg PO HS 05/12/21 [History] amLODIPine BESYLATE/BENAZEPRIL [Lotrel 5-10 MG] 1 cap PO DAILY 05/12/21 [History] Vits A and D/White Pet/Lanolin [A and D Ointment] 1 applic TOPICAL Q12H 01/06/22 [History] cefUROXime axetiL [Ceftin] 500 mg PO BID 3 Days #6 tab 01/10/22 [Rx] metroNIDAZOLE [Flagyl] 500 mg PO BID 3 Days #9 tab 01/10/22 [Rx] Follow up Appointment(s)/Referral(s): Juliana Olvera MD [Primary Care Provider] - 1-2 days Discharge Disposition: TRANSFER TO SNF/ECF
== END 2022-01-10 15:31 | DRG 871 ==
LOC: EC 12:41 → 3SCARD 14:33
PROVIDERS: ADMIT Internal Medicine; ATTEND Internal Medicine
DX: A41.9 Sepsis, unspecified organism (principal); K57.31 Diverticulosis of large intestine without perforation or abscess with bleeding; G91.2 (Idiopathic) normal pressure hydrocephalus; K52.9 Noninfective gastroenteritis and colitis, unspecified; E11.9 Type 2 diabetes mellitus without complications; E78.5 Hyperlipidemia, unspecified; E86.0 Dehydration; F03.90 Unspecified dementia, unspecified severity, without behavioral disturbance, psychotic disturbance, mood disturbance, and anxiety; I95.9 Hypotension, unspecified; H54.7 Unspecified visual loss; I10 Essential (primary) hypertension; I25.10 Atherosclerotic heart disease of native coronary artery without angina pectoris; J44.9 Chronic obstructive pulmonary disease, unspecified; I70.0 Atherosclerosis of aorta; F32.A Depression, unspecified; Z87.891 Personal history of nicotine dependence; K59.89 Other specified functional intestinal disorders; Z87.01 Personal history of pneumonia (recurrent); Z86.718 Personal history of other venous thrombosis and embolism; Z74.01 Bed confinement status; Z79.82 Long term (current) use of aspirin; Z79.899 Other long term (current) drug therapy; Z86.73 Personal history of transient ischemic attack (TIA), and cerebral infarction without residual deficits; Z90.81 Acquired absence of spleen
CPT/HCPCS: 36415; 71045; 74177; 80048; 80053; 82607; 82747; 83605; 84443; 85025; 85027; 85610; 85730; 86850; 86900; 86901; 87040; 87077; 87186; 93005; 94640; 94760; 96361; 96365; 96375; 99285